=== PATIENT | female | born 1970 | race African-American/Black ===

== ENCOUNTER 2021-08-17 08:39 | Outpatient (REF) | payer OTHER, SELFPAY ==
--- NOTE | 2021-09-04 08:23 | MHC.AU.AEV ---
Adult Audiological Evaluation Date of Visit: 08/17/21 Reason for Appointment: Patient has begun to notice hearing difficulty. She reports that she was given a hearing screening recently, which indicated she should have a full audiological evaluation. She notices the most difficulty hearing in groups or in background noise. Does patient feel they have a hearing loss?: Yes If Yes, Which Ear?: Both Ears Hearing Handicap Inventory Does a hearing problem cause you to feel embarrassed when meeting new people?: No Does a hearing problem cause you to feel frustrated when talking to members of your family?: Yes Do you have difficulty when someone speaks in a whisper?: Yes Do you feel handicapped by a hearing problem?: No Does a hearing problem cause you difficulty when visiting friends, relatives, or neighbors?: No Does a hearing problem cause you to attend yarsanism service services less often than you would like?: No Does a hearing problem cause you to have arguments with family members?: Sometimes Does a hearing problem cause you difficulty when listening to TV or radio?: No Do you feel that any difficult with your hearing limits or hampers your personal or social life?: Sometimes Does a hearing problem cause you difficulty when in a restaurants with relatives or friends?: Yes HHIE SCORE: 16 Based on HHIE score, patient has: Mild to moderate perceived hearing handicap Ear History: Ear Deformity: None Reported Recent Ear Drainage: None Reported Recent Ear Pain: None Reported Family History of Hearing Loss?: Yes: Mother, Aunt Recent Ear Infections: None Reported Ear Infections in Childhood: None Reported History of Ear Wax Buildup: None Reported Previous Ear Surgery: None Reported Bothersome Tinnitus/Ringing/Noises in Ears: None Reported Ear used on the phone: Right Ear Blocked/Full Sensation in Ear(s): None Reported History of occupational noise exposure?: Yes History: No Medical History: Medical History: Diabetes, High Blood Pressure Medication List: Lisinopril, Pravstatin, Levemir, Januvia, Multivitamin Otoscopy: Right Ear: Occluded w/cerumen- removal performed prior to testing Left Ear: Occluded w/cerumen- removal performed prior to testing Tympanometry: Tympanometry performed due to: To assess integrity of the middle ear system Right Ear: Normal Middle Ear System (Type A) Left Ear: Hypercompliant Middle Ear System (Type Ad) Hearing Evaluation: Transducer(s) Used: Circumaural Headphones Method: Conventional Audiometry Stimuli Used: Pure Tones Right Ear: Description of Hearing: Normal hearing from 250-3000 Hz, sloping to moderately-severe sensorineural hearing loss at 8000 Hz Left Ear: Description of Hearing: Normal hearing from 250-3000 Hz, sloping to severe sensorineural hearing loss at 8000 Hz Speech Recognition Threshold (SRT): Method Used: Recorded Lists Stimuli Used: Spondee Words Right Ear: 15 dBHL Left Ear: 20 dBHL Word Discrimination: Method: Recorded Lists Word Lists Used:: W-22 Right Ear: 96% at 55 dBHL Left Ear: 96% at 55 dBHL QuickSIN: 4 dB SNR loss, which suggests mildly elevated difficulty understanding speech in noise Interpretation of Results: Otoscopy prior to testing had revealed occluded canals. Cerumen removal was performed, and the tympanic membranes can now be visualized. Some cerumen remains, as it was too deep to be removed today, but it was not enough to interfere with testing. It is likely that the occluding cerumen was affecting her hearing prior to its removal. Patient presents with hearing that is normal from 250-3000 Hz, sloping to moderately-severe/severe sensorineural hearing loss by 8000 Hz. With this degree of hearing loss, patient can likely still understand speech well in quiet settings and small groups. In larger groups or noisy settings, it may become more difficult to follow along in conversation. At this time, hearing aids are not warranted, as most of the hearing is falling within normal range. Recommendations: Audiological re-evaluation in one year. To optimize the listening environment: -Minimize background noise when possible -Speak in clear voice, from a close distance, and [id number] -Do not talk too fast. Most people find that slowing down the rate of speech is more helpful than raising one's voice or yelling. -Gain the patient's full attention before talking -Encourage groups to only have one person speaking at a time Use of wax softening drops, such as EarWaxMD or Debrox, is recommended. Diagnosis: Primary Diagnosis: H90.3 Bilateral Sensorineural Hearing Loss Signature: Provider: Rony Jeter, [facility]
== END 2021-08-17 08:40 | disposition home or self-care (01) ==
LOC: HO.SH 08:39
PROVIDERS: Visit Provider Internal Medicine
DX: Z01.118 Encounter for examination of ears and hearing with other abnormal findings (principal); H90.3 Sensorineural hearing loss, bilateral
CPT/HCPCS: 92557; 92567

== ENCOUNTER 2021-08-29 09:03 | Outpatient (REF) | payer OTHER, SELFPAY ==
--- NOTE | ~2021-08-29 | MM_ITS ---
EXAMINATION: MM SCREENING DIGITAL BREAST TOMOSYNTHESIS, BILATERAL CLINICAL INFORMATION: Screening. Asymptomatic. Prior [id number] mammography currently unavailable. Prior history benign left excisional biopsy 1998. The lifetime risk of breast cancer based on the Tyrer-Cuzick Model is 11%. COMPARISON: None. TECHNIQUE: Digital breast tomosynthesis is performed in both the craniocaudal and mediolateral oblique views along with computer-aided detection (CAD). Synthesized 2D images are generated from the tomosynthesis. FINDINGS: There are scattered areas of fibroglandular density (ACR BI-RADS breast composition Category b). Breast tissue composition borders on heterogeneously dense. There are no significant masses, abnormal calcifications, or other abnormalities. The axilla and skin contours are unremarkable. Radiology department staff will attempt to retrieve prior [id number] mammography to allow for comparison in an addendum report. MM/MM tomosynthesis screening BI IMPRESSION: No mammographic evidence of malignancy. ASSESSMENT: BI-RADS 1: Negative RECOMMENDATION: Routine annual mammography screening. This patient's information was entered into a reminder system with a target due date for their next mammogram.
== END 2021-08-29 09:04 | disposition home or self-care (01) ==
LOC: HO.MAMMO 09:03
PROVIDERS: PCP Internal Medicine; Visit Provider Internal Medicine
DX: Z12.31 Encounter for screening mammogram for malignant neoplasm of breast (principal)
CPT/HCPCS: 77063; 77067

== ENCOUNTER 2021-09-06 15:22 | Outpatient (REF) | payer OTHER, SELFPAY ==
--- NOTE | ~2021-09-06 | XR_ITS ---
EXAMINATION: XR CERVICAL SPINE CLINICAL INFORMATION: Neck pain. COMPARISON: None TECHNIQUE: 6 views of the cervical spine, inclusive of flexion and extension views, were obtained. FINDINGS: The vertebral alignment is normal. No intrinsic bony abnormality. The disc heights and neural foramina are well maintained. The endplates and posterior elements are normal. No fracture or subluxation. The surrounding prevertebral soft tissues are unremarkable. XR/XR cervical spine min 6V IMPRESSION: Unremarkable cervical spine.
== END 2021-09-06 15:23 | disposition home or self-care (01) ==
LOC: HO.XRAY 15:22
PROVIDERS: PCP Internal Medicine; Visit Provider Internal Medicine
DX: M54.2 Cervicalgia (principal)
CPT/HCPCS: 72052

== ENCOUNTER 2021-10-26 08:35 | Emergency (ER) | payer OTHER, SELFPAY ==
--- NOTE | ~2021-10-26 | XR_ITS ---
EXAMINATION: XR CHEST CLINICAL INFORMATION: Hypertension. Chest pain. COMPARISON: None TECHNIQUE: 2 views of the chest were obtained. FINDINGS: No significant abnormality is noted involving the heart, lungs, mediastinum, bony thorax or soft tissues. XR/XR chest 2V IMPRESSION: Unremarkable chest examination.
[2021-10-26 08:37] VITALS: BP 188/88; PULSE 66; RESP 16; TEMP 36.4; O2SAT 99; BMI 34.2
--- NOTE | 2021-10-26 08:56 | ECG_ITS ---
Test Reason : hypertension Blood Pressure : / mmHG Vent. Rate : 055 BPM Atrial Rate : 055 BPM P-R Int : 218 ms QRS Dur : 080 ms QT Int : 440 ms P-R-T Axes : 027 003 021 degrees QTc Int : 420 ms Sinus bradycardia with 1st degree A-V block Otherwise normal ECG No previous ECGs available Referred By: Sheeba Jorge Electronically Signed By:Tiburcio Sepulveda
--- NOTE | 2021-10-26 08:57 | ED.GENADULT ---
HPI - General Adult General Chief complaint: General Medical Stated complaint: high BP Time Seen by Provider: 10/26/21 08:43 Source: patient Mode of arrival: ambulatory Limitations: no limitations History of Present Illness HPI narrative: Patient presents emergency department for evaluation of elevated blood pressure readings, headache, and bilateral arm pain. She states that she was seen by her primary care provider 3 days ago and her blood pressure was normal. Since yesterday she developed a diffuse headache, and felt heaviness/ pressure to her bilateral arms. She suspected that her blood pressure may be elevated. When checked she states it was 190 systolic. Last night around 2300 she took an additional lisinopril 20 mg by mouth, took her scheduled lisinopril 20 mg at 06:00. States that her headache and arm pain still persists at this time. Reports history of her father having an PR at the age of 51. Currently she denies vision changes, dizziness, lightheadedness, neck pain, neck stiffness, chest pain, palpitations, shortness of breath, difficulty breathing, nausea, vomiting, abdominal pain, dysuria, numbness or tingling of the extremities, generalized weakness. Related Data Allergies Allergy/AdvReac Type Severity Reaction Status Date / Time No Known Allergies Allergy Verified 10/26/21 08:55 Review of Systems Review of Systems: Constitutional: No fever. No chills. No weakness. No fatigue. Eye: No vision changes Skin: No rash. No itching. Cardiovascular: No chest pain. No chest pressure. No palpitations. No pedal edema. positive hypertension Respiratory: No shortness of breath. No cough. Gastrointestinal: No anorexia. No nausea. No vomiting. No diarrhea. No abdominal pain. Genitourinary: No burning micturition. No urinary frequency. No incontinence. Neurologic: positive headache. No dizziness. No pre-syncope/ syncope. No unilateral weakness. No ataxia. No numbness. No tingling. Musculoskeletal: No muscle pain. No back pain. No joint pain. No stiffness. Psychiatric:No depression. No anxiety. Yes all other systems are reviewed and are negative [facility] Past Medical History Attestation statement: The following information was validated with the patient. Source: old records reviewed Social History Social History Advance Directives: No Advance Directives Information Provided: No Physical Exam ED Vital Signs: Vital Signs - 24 hr 10/26/21 08:37 10/26/21 09:23 10/26/21 11:07 Temperature 97.5 F Pulse Rate 66 53 56 Respiratory Rate 16 14 10 L Blood Pressure 188/88 H 145/75 H 153/82 H Pulse Oximetry 99 100 100 Oxygen Delivery Method Room Air Room Air Room Air BMI result Body Mass Index 34.2 Vital signs have been reviewed and appeared to be correct. hypertension, during exam 159/85? Heart rate normal.? Respiration rate normal. Temperature normal.? Oxygen saturation normal. Appearance: Alert.?Oriented to person, place and time. No acute distress.?Normal affect. Eyes: Pupils equal, round and reactive to light.? EOMI. No nystagmus. ENT: Pharynx normal.?? Neck: Normal inspection.? Neck supple.?? Full AROM. No stiffness. CVS: Heart sounds normal. Normal heart rate and rhythm.? Pulses normal.?? no JVD Respiratory: No respiratory distress.? Lung sounds clear to auscultation bilaterally?? Abdomen: Soft and non-tender. Normoactive bowel sounds. No pulsatile mass.?? Skin: Skin warm and dry.? Normal skin color.? Extremities: No lower extremity edema.? No calf ttp? Neuro: Moves all extremities spontaneously. Sensation intact bilaterally. No motor deficits Ambulates with normal steady gait. Course Course Course Narrative: patient is a 51-year-old female with a past medical history of diabetes and hypertension presenting to emergency department for evaluation of elevated blood pressure readings with headache and arm pain. Initial blood pressure 188/88, on repeat during exam 159/85, otherwise hemodynamically stable. Will obtain CBC to evaluate for leukocytosis/ anemia, CMP to evaluate for abnormal electrolytes /abnormal renal function/ abnormal hepatic function, EKG and troponin to evaluate for ischemia/ACS. Chest x-ray to evaluate for consolidation/ infiltrate/ mass/ pulmonary congestion. Disposition pending results. Reevaluation(s) Reevaluation #1: CBC reveals normocytic anemia, leukocytopenia. CMP is overall unremarkable. chest x-ray reveals no acute cardiopulmonary process. Troponin <3.5, EKG reveals sinus bradycardia with first-degree AV block, no EKGs for comparison, but no acute ischemic findings, unlikely ACS. Patient reports never having an EKG in the past, discussed EKG findings, advised that she should follow-up with her primary care provider within 1-3 days. discussed reasons that she should return back to the emergency department. Blood pressure at the time of discharge 145/75. She is otherwise well-appearing. She is discharged home in stable condition. Time: 10:31 Medical Decision Making Medical Records Medical records reviewed: Yes I reviewed the patient's medical records. Lab Data Lab results reviewed: Yes I reviewed the patient's lab results. Result diagrams: 10/26/21 09:15 10/26/21 09:15 Labs: Lab Results 10/26/21 10/26/21 10/26/21 Range/Units 09:15 09:15 09:15 WBC 4.0 L (4.8-10.8) X10*3/uL RBC 4.14 L (4.20-5.50) X10*6/uL Hgb 11.6 L (12.0-16.0) g/dl Hct 35.8 L (37.0-47.0) % MCV 86.5 (80.0-98.0) fL MCH 28.0 (27.0-33.0) pg MCHC 32.4 (31.0-35.0) g/dl RDW 12.9 (11.0-16.0) % Plt Count 350 (160-400) X10*3/uL MPV 8.8 L (9.4-12.3) fL Immature Gran % (Auto) 0.5 H (0.0-0.4) % Neut % (Auto) 42.7 L (45-73) % Lymph % (Auto) 46.9 H (20-40) % [place] % (Auto) 8.1 (2-11) % Eos % (Auto) 1.3 (0-4) % Baso % (Auto) 0.5 (0-2) % Lymph # (Auto) 1.9 (1.2-4.9) X10*3/uL [place] # (Auto) 0.3 (0.1-1.2) X10*3/uL Eos # (Auto) 0.1 (0.0-0.4) X10*3/uL Baso # (Auto) 0.0 (0.0-0.2) X10*3/uL Abs Immat Gran (auto) 0.02 (0.00-0.03) X10*3/uL Absolute Neuts (auto) 1.7 L (2.0-8.3) x10*3/uL Absolute Nucleated RBC 0.000 (0.0-0.012) X10*3/uL Nucleated RBC % (auto) 0.0 (0.0-0.2) /100WBC Sodium 141 (135-145) mmol/L Potassium 3.8 (3.3-5.1) mmol/L Chloride 107 (96-108) mmol/L Carbon Dioxide 29 (22-29) mmol/L Anion Gap 9 L (12-20) BUN 10 (9-16) mg/dL Creatinine 0.78 (0.5-1.4) mg/dL Estim Creat Clear Calc 99.7 Estimated GFR > 60 Random Glucose 118 H (60-115) mg/dL Calcium 9.1 (8.4-10.2) mg/dL Magnesium 2.0 (1.6-2.6) mg/dL Total Bilirubin 0.7 (0.0-1.0) mg/dL AST 19 (5-31) U/L ALT 26 (0-31) U/L Alkaline Phosphatase 93 (39-117) U/L Troponin I High Sens < 3.5 (<3.5-17.0) ng/L Total Protein 7.6 (6.5-8.0) g/dL Albumin 4.1 (3.5-5.0) g/dL COVID-19 ([place]) (Negative) COVID-19 Clin Com 10/26/21 Range/Units 09:15 WBC (4.8-10.8) X10*3/uL RBC (4.20-5.50) X10*6/uL Hgb (12.0-16.0) g/dl Hct (37.0-47.0) % MCV (80.0-98.0) fL MCH (27.0-33.0) pg MCHC (31.0-35.0) g/dl RDW (11.0-16.0) % Plt Count (160-400) X10*3/uL MPV (9.4-12.3) fL Immature Gran % (Auto) (0.0-0.4) % Neut % (Auto) (45-73) % Lymph % (Auto) (20-40) % [place] % (Auto) (2-11) % Eos % (Auto) (0-4) % Baso % (Auto) (0-2) % Lymph # (Auto) (1.2-4.9) X10*3/uL [place] # (Auto) (0.1-1.2) X10*3/uL Eos # (Auto) (0.0-0.4) X10*3/uL Baso # (Auto) (0.0-0.2) X10*3/uL Abs Immat Gran (auto) (0.00-0.03) X10*3/uL Absolute Neuts (auto) (2.0-8.3) x10*3/uL Absolute Nucleated RBC (0.0-0.012) X10*3/uL Nucleated RBC % (auto) (0.0-0.2) /100WBC Sodium (135-145) mmol/L Potassium (3.3-5.1) mmol/L Chloride (96-108) mmol/L Carbon Dioxide (22-29) mmol/L Anion Gap (12-20) BUN (9-16) mg/dL Creatinine (0.5-1.4) mg/dL Estim Creat Clear Calc Estimated GFR Random Glucose (60-115) mg/dL Calcium (8.4-10.2) mg/dL Magnesium (1.6-2.6) mg/dL Total Bilirubin (0.0-1.0) mg/dL AST (5-31) U/L ALT (0-31) U/L Alkaline Phosphatase (39-117) U/L Troponin I High Sens (<3.5-17.0) ng/L Total Protein (6.5-8.0) g/dL Albumin (3.5-5.0) g/dL COVID-19 ([place]) Negative (Negative) COVID-19 Clin Com See Note Imaging Data Chest x-ray: Radiologist's impression: FINDINGS: No significant abnormality is noted involving the heart, lungs, mediastinum, bony thorax or soft tissues. XR/XR chest 2V IMPRESSION: Unremarkable chest examination. ECG Data Attestation: I personally reviewed and interpreted this ECG as follows: Prior ECG tracings: not available for review Interpretation: Rate: 55 Rhythm:? sinus bradycardia with first-degree AV block [place]:? normal Normal P waves.? prolonged [place]AT[place]Z; 218.?? Normal QRS complex.?? ST T wave :?? no ST elevation, no ST depression, no T-wave inversion qTC: 420 prior studies:? no prior studies available for review The study has been interpreted contemporaneously by me. Discharge Plan Discharge Clinical Impression: Hypertension, Atrioventricular block, first degree, Bradycardia, sinus Patient Disposition: Home, Self-Care Instructions: Hypertension (ED) Additional Instructions: Your blood work shows that you are anemic, but do not require any blood transfusion. Your EKG shows an arrhythmia, sinus bradycardia with first-degree AV block, you reported not having an EKG performed in the past, you need to contact your primary care provider to schedule a follow-up visit in regards to this. Blood pressure had normalized while in the emergency department, please contact your primary care provider to schedule follow-up visit within 1-3 days for further evaluation of your blood pressure. You may return to emergency department with any new or worsening symptoms or concerns such as severe worsening headache, neck pain, chest pain, palpitations, shortness of breath, difficulty breathing, dizziness, lightheadedness, nausea, vomiting, abdominal pain, numbness or tingling of your arms/ legs, or weakness. Interventions: ED Discharge Assessment Last Done: 10/26/21 11:28 Discharge Date/Time: 10/26/21 11:29
[2021-10-26 09:23] VITALS: BP 145/75; PULSE 53; RESP 14; O2SAT 100
[2021-10-26 09:25] LABS: MANUAL DIFF FLAG NO
[2021-10-26 09:35] LABS: Basophils Percent Auto 0.5 % (0-2); Eosinophils Absolute Auto 0.1 X10*3/uL (0.0-0.4); Eosinophils Percent Auto 1.3 % (0-4); Hematocrit 35.8 % (37.0-47.0); Hemoglobin 11.6 g/dl (12.0-16.0); Imm Gran Abs Auto 0.02 X10*3/uL (0.00-0.03); Imm Gran Pct Auto 0.5 % (0.0-0.4); Lymphocytes Absolute Auto 1.9 X10*3/uL (1.2-4.9); Lymphocytes Percent Auto 46.9 % (20-40); Mean Corpuscular HGB Conc 32.4 g/dl (31.0-35.0); Mean Corpuscular Volume 86.5 fL (80.0-98.0); Mean Platelet Volume 8.8 fL (9.4-12.3); Monocytes Absolute Auto 0.3 X10*3/uL (0.1-1.2); Monocytes Percent Auto 8.1 % (2-11); Neutrophils Absolute Auto 1.7 x10*3/uL (2.0-8.3); Neutrophils Percent Auto 42.7 % (45-73); Platelet Count 350 X10*3/uL (160-400); Red Blood Count 4.14 X10*6/uL (4.20-5.50); Red Cell Distribution Width 12.9 % (11.0-16.0)
[2021-10-26 09:42] LABS: COVID-19 Test Negative (Negative)
[2021-10-26 09:49] LABS: Alanine Aminotransferase 26 U/L (0-31); Albumin Level 4.1 g/dL (3.5-5.0); Alkaline Phosphatase 93 U/L (39-117); Anion Gap 9 (12-20); Aspartate Amino Transferase 19 U/L (5-31); Bilirubin Total 0.7 mg/dL (0.0-1.0); Blood Urea Nitrogen 10 mg/dL (9-16); Calcium 9.1 mg/dL (8.4-10.2); Carbon Dioxide 29 mmol/L (22-29); Chloride 107 mmol/L (96-108); Creatinine Clr Calc Pharmacy 99.7; Estimated Glomerular Filt Rate > 60; Glucose Random 118 mg/dL (60-115); Potassium 3.8 mmol/L (3.3-5.1); Sodium 141 mmol/L (135-145); Total Protein 7.6 g/dL (6.5-8.0); Troponin-I High Sensitivity < 3.5 ng/L (<3.5-17.0)
[2021-10-26 11:07] VITALS: BP 153/82; PULSE 56; RESP 10; O2SAT 100
== END 2021-10-26 11:29 | disposition home or self-care (01) ==
PROVIDERS: Nurse Practitioner Family; Emergency Provider Student in an Organized Health Care Education/Training Program; PCP Internal Medicine
DX: I10 Essential (primary) hypertension (principal); I44.0 Atrioventricular block, first degree; R00.1 Bradycardia, unspecified; D64.9 Anemia, unspecified; D72.819 Decreased white blood cell count, unspecified; Z20.822 Contact with and (suspected) exposure to COVID-19
CPT/HCPCS: 71046; 80053; 83735; 84484; 85025; 87635; 93005; 99283; 99284

== ENCOUNTER 2022-01-14 12:24 | Emergency (ER) | payer OTHER, SELFPAY ==
--- NOTE | ~2022-01-14 | XR_ITS ---
EXAMINATION: XR CHEST CLINICAL INFORMATION: Shortness of breath, chest pain. COMPARISON: 10/26/2021 chest radiographs. TECHNIQUE: Frontal view of the chest was obtained. FINDINGS: No significant abnormality is noted involving the heart, lungs, mediastinum, bony thorax or soft tissues. XR/XR chest 1V IMPRESSION: No acute cardiopulmonary process.
[2022-01-14 12:42] VITALS: BP 125/74; BP 139/75; PULSE 130; PULSE 98; RESP 18; TEMP 37.9; O2SAT 95; BMI 31.7
--- NOTE | 2022-01-14 12:55 | ECG_ITS ---
Test Reason : SOB Blood Pressure : / mmHG Vent. Rate : 093 BPM Atrial Rate : 093 BPM P-R Int : 198 ms QRS Dur : 084 ms QT Int : 356 ms P-R-T Axes : 044 002 067 degrees QTc Int : 442 ms Normal sinus rhythm Nonspecific T wave abnormality Abnormal ECG When compared with ECG of 26-OCT-2021 09:03, Vent. rate has increased BY 38 BPM Nonspecific T wave abnormality, worse in Lateral leads Referred By: Aleksandra Bhatt Electronically Signed By:JOHN OSMAN
--- NOTE | 2022-01-14 13:02 | ED.GENADULT ---
HPI - General Adult General Chief complaint: General Medical Stated complaint: NAUSEA/VOMITING Time Seen by Provider: 01/14/22 12:36 Source: patient and EMS Mode of arrival: EMS History of Present Illness HPI narrative: 52-year-old female with no significant past medical history presenting to the ED complaining of productive cough, SOB, chest discomfort when coughing, nausea, and vomiting since yesterday. Reports COVID-19 exposure. Also reports low-grade fever, chills, myalgias and generalized fatigue. Denies headache, abdominal pain, diarrhea/constipation, dysuria/hematuria, recent travel Onset (ago): day(s) Related Data Allergies Allergy/AdvReac Type Severity Reaction Status Date / Time No Known Allergies Allergy Verified 10/26/21 08:55 Review of Systems Review of Systems: Constitutional: + Fever, + Chills, No Night Sweats, + Fatigue, + Malaise ENT/Mouth: No Ear Pain, No Nasal Congestion, No Sinus Pain, No Hoarseness, No sore throat, No Rhinorrhea, No Swallowing Difficulty Eyes: No Eye Pain, No Swelling, No Redness, No Vision Changes Cardiovascular: + Chest Pain when coughing, + SOB, No Dyspnea on Exertion, No Orthopnea, No Edema, No Palpitations Respiratory: + Cough, + Sputum, No Dyspnea Gastrointestinal: + Nausea, + Vomiting, No Diarrhea, No Constipation, No Abdominal pain Genitourinary: No Dysuria, No Urinary Frequency, No Hematuria, No Urinary Incontinence/retention, No Flank Pain, No Urinary Flow Changes, No Hesitancy Musculoskeletal: No joint pain, + Myalgias, No Joint Swelling Skin: No Skin Lesions, No rash Neuro: No Weakness, No Numbness, No Paresthesias, No Loss of Consciousness, No Dizziness, No Headache Yes all other systems are reviewed and are negative Constitutional: Constitutional: Reports as per [facility] Past Medical History Attestation statement: The following information was validated with the patient. Social History Social History Advance Directives: No Advance Directives Information Provided: Yes Physical Exam ED Vital Signs: Vital Signs - 24 hr 01/14/22 12:42 Temperature 100.3 F Pulse Rate 98 Respiratory Rate 18 Blood Pressure 139/75 Pulse Oximetry 95 Oxygen Delivery Method Room Air BMI result Body Mass Index 31.7 Const General: cooperative, healthy appearing, no acute distress and alert Orientation/consciousness: patient oriented x3 Limitations: no limitations HENMT Head: Yes normal to inspection and Yes atraumatic Ears: hearing grossly normal bilaterally General nose exam: Normal external nose present Face and sinus: Yes normal facial exam Mouth: Normal oral and palatal mucosa present Throat: Yes posterior oropharynx normal and Yes tonsils normal Eyes General: appearance normal, both eyes and all related structures EOM: EOMs intact bilaterally Neck Neck: Yes normal visual inspection and Yes no meningeal signs Resp Effort & Inspection: normal respiratory effort and no respiratory distress Auscultation: clear to auscultation bilaterally, no crackles, no rales, no rhonchi and no wheezes Cardio Rate: regular rate Heart sounds: S1 normal heart sound present and S2 normal heart sound present GI Inspection: Yes normal to inspection Palpation (GI): Soft to palpation, nontender, no guarding and not rigid General: Yes no CVA tenderness Back/Spine/Pelvis Back: no CVA tenderness Skin Rashes: no rashes Wounds: no wounds Neuro General: patient oriented x3, tone normal and no meningeal signs Gait exam (Neuro): Normal gait present Extrem General: Yes normal to inspection, Yes no pedal edema and Yes no calf tenderness Course Course Course Narrative: -no leukocytosis. H&H stable. Patient is COVID-19 positive -labs otherwise unremarkable XR chest 1V IMPRESSION: No acute cardiopulmonary process. > patient is tolerating p.o. in the ED. Will refer to [facility] monoclonal antibodies Results discussed with patient including worrisome signs and symptoms and strict return precautions, and when to return to the emergency department. They verbalized understanding and feel safe for discharge at this time. Medical Decision Making [facility] Narrative Medical decision making narrative: 52-year-old female with no significant past medical history presenting to the ED complaining of productive cough, SOB, chest discomfort when coughing, nausea, and vomiting since yesterday. On exam low-grade temp 100.3 degrees, appears tired, lungs CTA, abdomen soft/nontender. Concern for viral illness including COVID-19 vs pneumonia vs gastroenteritis. Lower suspicion for ACS/PE, appendicitis/diverticulitis or or severe sepsis at this time Plan: EKG, labs, UA, IVF, COVID-19 testing, re-evaluate Medical Records Medical records reviewed: Yes I reviewed the patient's medical records. Lab Data Lab results reviewed: Yes I reviewed the patient's lab results. Result diagrams: 01/14/22 13:19 01/14/22 13:19 Labs: Lab Results 01/14/22 01/14/22 01/14/22 Range/Units 13:19 13:19 13:19 WBC 6.0 (4.8-10.8) X10*3/uL RBC 4.04 L (4.20-5.50) X10*6/uL Hgb 11.5 L (12.0-16.0) g/dl Hct 34.7 L (37.0-47.0) % MCV 85.9 (80.0-98.0) fL MCH 28.5 (27.0-33.0) pg MCHC 33.1 (31.0-35.0) g/dl RDW 13.2 (11.0-16.0) % Plt Count 314 (160-400) X10*3/uL MPV 8.8 L (9.4-12.3) fL Immature Gran % (Auto) 0.3 (0.0-0.4) % Neut % (Auto) 82.0 H (45-73) % Lymph % (Auto) 7.0 L (20-40) % [place] % (Auto) 10.3 (2-11) % Eos % (Auto) 0.2 (0-4) % Baso % (Auto) 0.2 (0-2) % Lymph # (Auto) 0.4 L (1.2-4.9) X10*3/uL [place] # (Auto) 0.6 (0.1-1.2) X10*3/uL Eos # (Auto) 0.0 (0.0-0.4) X10*3/uL Baso # (Auto) 0.0 (0.0-0.2) X10*3/uL Abs Immat Gran (auto) 0.02 (0.00-0.03) X10*3/uL Absolute Neuts (auto) 4.9 (2.0-8.3) x10*3/uL Absolute Nucleated RBC 0.000 (0.0-0.012) X10*3/uL Nucleated RBC % (auto) 0.0 (0.0-0.2) /100WBC Sodium 140 (135-145) mmol/L Potassium 3.3 (3.3-5.1) mmol/L Chloride 102 (96-108) mmol/L Carbon Dioxide 27 (22-29) mmol/L Anion Gap 14 (12-20) BUN 13 (9-16) mg/dL Creatinine 1.23 (0.5-1.4) mg/dL Estim Creat Clear Calc 60.2 Estimated GFR 46 Random Glucose 185 H (60-115) mg/dL Calcium 8.7 (8.4-10.2) mg/dL Magnesium 1.7 (1.6-2.6) mg/dL Total Bilirubin 0.6 (0.0-1.0) mg/dL Direct Bilirubin 0.2 (0.0-0.5) mg/dL AST 24 (5-31) U/L ALT 26 (0-31) U/L Alkaline Phosphatase 75 (39-117) U/L Troponin I High Sens < 3.5 (<3.5-17.0) ng/L B-Natriuretic Peptide < 10 (<100) pg/mL Total Protein 7.3 (6.5-8.0) g/dL Albumin 3.9 (3.5-5.0) g/dL COVID-19 ([place]) (Negative) COVID-19 Clin Com 01/14/22 Range/Units 13:19 WBC (4.8-10.8) X10*3/uL RBC (4.20-5.50) X10*6/uL Hgb (12.0-16.0) g/dl Hct (37.0-47.0) % MCV (80.0-98.0) fL MCH (27.0-33.0) pg MCHC (31.0-35.0) g/dl RDW (11.0-16.0) % Plt Count (160-400) X10*3/uL MPV (9.4-12.3) fL Immature Gran % (Auto) (0.0-0.4) % Neut % (Auto) (45-73) % Lymph % (Auto) (20-40) % [place] % (Auto) (2-11) % Eos % (Auto) (0-4) % Baso % (Auto) (0-2) % Lymph # (Auto) (1.2-4.9) X10*3/uL [place] # (Auto) (0.1-1.2) X10*3/uL Eos # (Auto) (0.0-0.4) X10*3/uL Baso # (Auto) (0.0-0.2) X10*3/uL Abs Immat Gran (auto) (0.00-0.03) X10*3/uL Absolute Neuts (auto) (2.0-8.3) x10*3/uL Absolute Nucleated RBC (0.0-0.012) X10*3/uL Nucleated RBC % (auto) (0.0-0.2) /100WBC Sodium (135-145) mmol/L Potassium (3.3-5.1) mmol/L Chloride (96-108) mmol/L Carbon Dioxide (22-29) mmol/L Anion Gap (12-20) BUN (9-16) mg/dL Creatinine (0.5-1.4) mg/dL Estim Creat Clear Calc Estimated GFR Random Glucose (60-115) mg/dL Calcium (8.4-10.2) mg/dL Magnesium (1.6-2.6) mg/dL Total Bilirubin (0.0-1.0) mg/dL Direct Bilirubin (0.0-0.5) mg/dL AST (5-31) U/L ALT (0-31) U/L Alkaline Phosphatase (39-117) U/L Troponin I High Sens (<3.5-17.0) ng/L B-Natriuretic Peptide (<100) pg/mL Total Protein (6.5-8.0) g/dL Albumin (3.5-5.0) g/dL COVID-19 ([place]) Positive A (Negative) COVID-19 Clin Com See Note ECG Data Attestation: I personally reviewed and interpreted this ECG as follows: Interpretation: EKG normal sinus rhythm at a rate of 93. QTC 442. No STEMI. Nonischemic Discharge Plan Discharge Clinical Impression: COVID-19 Patient Disposition: Home, Self-Care Instructions: COVID-19 (Coronavirus Disease 2019) (ED) Additional Instructions: YOU HAVE COVID-19. WE REFERRED YOU FOR [facility] MONOCLONAL ANTIBODIES, THEY SHOULD CALL YOU TO SCHEDULE YOU. Rest. Stay hydrated. Self isolate. Take Tylenol and Motrin as needed. If symptoms persist or worsen, you fever unresolved with medications, constant worsening shortness of breath/chest pain return to the ED At this time you will be okay for discharge. Please self isolate for 5-10 days. Do not expose yourself to others. You may not go to work or school. Please continue to follow cold instructions and wash your hands frequently. You may take Tylenol / Motrin as directed on the bottle for pain or fever. If you have constant or persistent shortness of breath, fever unresolved with medications, chest pain, or your unable to eat or drink please return to the ED CDC Guidelines for home isolation: - Stay away from others - WEAR A MASK if you are sick AND STAY HOME - Cover your mouth and nose with a tissue when you cough or sneeze. Dispose of tissues in a lined trash can and wash your hands immediately with soap and water for at least 20 seconds. If soap and water are not available, clean hands with alcohol-based hand soft drink powder mixer that contains at least 60% alcohol. - Clean your hands often with soap and water for at least 20 seconds - Avoid touching your eyes, nose and mouth with unwashed hands - Do not share dishes, drinking glasses, cups, eating utensils, towels, or bedding with other people in your home. After using these items, wash them thoroughly with soap and water or put in the working foreman. - Clean high-touch surfaces in your isolation area ( sick room and bathroom) every day; let a caregiver clean and disinfect high-touch surfaces in other areas of the home. Clean the area or item with soap and water or another detergent if it is dirty. Then, use a household disinfectant. - Limit contact with pets and animals: If you must care for a pet, wash your hands before and after interacting with them) Referrals: April Delong MD [Primary Care Provider] - Stand Alone Forms: Work/School Release
[2022-01-14] MEDS: 0.9 % Sodium Chloride 1,000 ML 999 ML IV (13:03)
[2022-01-14 13:22] LABS: MANUAL DIFF FLAG NO
[2022-01-14 13:26] LABS: Basophils Percent Auto 0.2 % (0-2); Eosinophils Percent Auto 0.2 % (0-4); Hematocrit 34.7 % (37.0-47.0); Hemoglobin 11.5 g/dl (12.0-16.0); Imm Gran Abs Auto 0.02 X10*3/uL (0.00-0.03); Imm Gran Pct Auto 0.3 % (0.0-0.4); Lymphocytes Absolute Auto 0.4 X10*3/uL (1.2-4.9); Mean Corpuscular HGB Conc 33.1 g/dl (31.0-35.0); Mean Corpuscular Hemoglobin 28.5 pg (27.0-33.0); Mean Corpuscular Volume 85.9 fL (80.0-98.0); Mean Platelet Volume 8.8 fL (9.4-12.3); Monocytes Absolute Auto 0.6 X10*3/uL (0.1-1.2); Monocytes Percent Auto 10.3 % (2-11); Neutrophils Absolute Auto 4.9 x10*3/uL (2.0-8.3); Platelet Count 314 X10*3/uL (160-400); Red Blood Count 4.04 X10*6/uL (4.20-5.50); Red Cell Distribution Width 13.2 % (11.0-16.0)
[2022-01-14 13:32] LABS: COVID-19 Test Positive (Negative)
[2022-01-14 13:46] LABS: Alanine Aminotransferase 26 U/L (0-31); Albumin Level 3.9 g/dL (3.5-5.0); Alkaline Phosphatase 75 U/L (39-117); Anion Gap 14 (12-20); Aspartate Amino Transferase 24 U/L (5-31); Bilirubin Direct 0.2 mg/dL (0.0-0.5); Bilirubin Total 0.6 mg/dL (0.0-1.0); Blood Urea Nitrogen 13 mg/dL (9-16); Calcium 8.7 mg/dL (8.4-10.2); Carbon Dioxide 27 mmol/L (22-29); Chloride 102 mmol/L (96-108); Creatinine Clr Calc Pharmacy 60.2; Estimated Glomerular Filt Rate 46; Glucose Random 185 mg/dL (60-115); Magnesium 1.7 mg/dL (1.6-2.6); Potassium 3.3 mmol/L (3.3-5.1); Sodium 140 mmol/L (135-145); Total Protein 7.3 g/dL (6.5-8.0)
[2022-01-14 13:53] LABS: B Type Natriuretic Peptide < 10 pg/mL (<100); Troponin-I High Sensitivity < 3.5 ng/L (<3.5-17.0)
== END 2022-01-14 15:12 | disposition home or self-care (01) ==
PROVIDERS: Physician Assistant; Emergency Provider Emergency Medicine; PCP Internal Medicine
DX: U07.1 COVID-19 (principal); R11.2 Nausea with vomiting, unspecified; R05.9 Cough, unspecified; R50.9 Fever, unspecified; R06.02 Shortness of breath; Z79.899 Other long term (current) drug therapy
CPT/HCPCS: 71045; 80048; 80076; 83735; 83880; 84484; 85025; 87635; 93005; 99283

== ENCOUNTER 2022-09-04 09:00 | Outpatient (REF) | payer BC, SELFPAY ==
--- NOTE | ~2022-09-04 | MM_ITS ---
EXAMINATION: MM SCREENING DIGITAL BREAST TOMOSYNTHESIS, BILATERAL CLINICAL INFORMATION: Screening. Asymptomatic. The lifetime risk of breast cancer based on the Tyrer-Cuzick Model is 9.3%. COMPARISON: Mammography: 08/29/2021. TECHNIQUE: Digital breast tomosynthesis is performed in both the craniocaudal and mediolateral oblique views along with computer-aided detection (CAD). Synthesized 2-D images are generated from the tomosynthesis. FINDINGS: The breasts are heterogeneously dense, which may obscure small masses (ACR BI-RADS breast composition Category c). On craniocaudal view centrally within the right breast, there is an asymmetric density for which spot compression view is recommended. This likely represented superimposition of fibroglandular tissue but was not seen previously. On left craniocaudal view posterolaterally, there is an asymmetric density not visualized previously which may represent superposition of fibroglandular tissue which lies approximately 10 cm from the nipple for which spot compression view is recommended. MM/MM tomosynthesis screening BI IMPRESSION: Bilateral breast densities for further evaluation. ASSESSMENT: BI-RADS 0: Incomplete - Need Additional Imaging Evaluation. RECOMMENDATION: 1. Additional views of the bilateral breasts. 2. Targeted ultrasound if warranted after review of the additional views. 3. Radiology department staff will contact the patient for additional imaging. This patient's information was entered into a reminder system with a target due date for their next mammogram.
== END 2022-09-04 09:01 | disposition home or self-care (01) ==
LOC: HO.MAMMO 09:00
PROVIDERS: PCP Internal Medicine; Visit Provider Internal Medicine
DX: Z12.31 Encounter for screening mammogram for malignant neoplasm of breast (principal)
CPT/HCPCS: 77063; 77067

== ENCOUNTER 2022-09-11 08:20 | Outpatient (REF) | payer BC, SELFPAY ==
--- NOTE | ~2022-09-11 | MM_ITS ---
EXAMINATION: MM DIAGNOSTIC DIGITAL BREAST TOMOSYNTHESIS, BILATERAL CLINICAL INFORMATION: Recall from screening for bilateral asymmetric parenchyma central right and outer left breast on CC views. Remote history benign left excisional biopsy, 1998. TC score 11%. COMPARISON: Mammography: 09/04/2022, 08/29/2021 (new baseline). TECHNIQUE: Digital breast tomosynthesis is performed. 2D images are generated from the tomosynthesis. The following views are obtained: Spot right CC, right ML, spot left CC, rolled left CC x2, left ML. FINDINGS: There are scattered areas of fibroglandular density (ACR BI-RADS breast composition Category b). Breast tissue borders on heterogeneously dense. The additional views show no interval mass or developing density or architectural abnormality in the areas for recall. No significant changes from prior new baseline exam. Results are discussed with the patient at time of visit. MM/MM tomosynthesis added view BI IMPRESSION: No mammographic evidence of malignancy. ASSESSMENT: BI-RADS 1: Negative RECOMMENDATION: Routine annual mammography screening. This patient's information was entered into a reminder system with a target due date for their next mammogram.
== END 2022-09-11 08:21 | disposition home or self-care (01) ==
LOC: HO.MAMMO 08:20
PROVIDERS: PCP Internal Medicine; Visit Provider Internal Medicine
DX: R92.2 Inconclusive mammogram (principal)
CPT/HCPCS: 77062; 77066

== ENCOUNTER 2023-05-24 11:58 | Outpatient (REF) | payer BC, SELFPAY ==
[2023-05-28 21:18] LABS: Rubella IgG Antibody <0.90 Index
== END 2023-05-24 11:59 | disposition home or self-care (01) ==
LOC: HO.HHCL 11:58
PROVIDERS: Visit Provider Internal Medicine
DX: Z02.1 Encounter for pre-employment examination (principal)
CPT/HCPCS: 36415; 86735; 86762; 86765; 86787

== ENCOUNTER 2023-10-03 14:01 | Outpatient (AMB) | payer BC, SELFPAY ==
--- NOTE | 2023-10-03 14:14 | A.OFFPC_ITS ---
Vital Signs 10/03/23 14:31 BMI Reason not done Patient refused/unable BP 132/70 Blood Pressure Location Lt radial Respiration 14 Pulse 73 Pulse Source Pulse Oximeter Temp 98.1 F Temp Source Oral Pulse Oximetry (%) 97 Oxygen Delivery Method Room Air Intake Visit Reasons: Est Care/ Refill Insulin Intake Note: New patient visit. Needs refill on insulin. Forming Process Line Worker Required: No Allergies No Known Allergies Allergy (Verified 10/03/23 14:19) Medication List - Last Reconciled 10/03/23 by Abigail Larson PA-C hydrochlorothiazide 12.5 mg PO DAILY insulin detemir U-100 (Levemir FlexTouch U-100 Insulin) 50 units subcut DAILY lisinopril 10 mg PO DAILY pravastatin 40 mg PO DAILY semaglutide (Ozempic) 0.25 mg subcut QWEEK Tobacco use date assessed: 10/03/23 Dental Screening Dental Screen Date: 10/03/23 Did you have a dental visit in the last 12 months?: No Did you have a dental problem in the last 6 months where you did not have access to dental care?: No Was dental information given to patient?: Yes HPI Est Care/ Refill Insulin HPI Details Patient is a 53-year-old female who presents today for an urgent visit related to her diabetes. She has an appointment to establish care with her PCP in the fall but is currently out of her diabetic medication. She states that she has been out of her Levemir for the last week and her Ozempic is down to 1 pen. She states that she split the dosage on Saturday and took a half a dose so she would have another week of medication. Endo: Her blood sugar currently on her Dexcom reader is just shy of 400. She was diagnosed with type 2 diabetes in 2011. She has been insulin dependent since that time. A1c is 8.8 today. She states that it increased from 7. something. She is on levemir 50 units nightly and ozempic 0.5 mg. She was on metformin for years but d/c this because she switched to ozempic. She is using a dexcom. She states that she has enough Dexcom sensors at home. She is up-to-date on eye exams and states that she last went a couple of months ago. She does have gastroparesis related to her diabetes. She developed this a few years ago. She denies any other known complications associated with diabetes. She currently denies any vision changes, numbness, tingling, abdominal pain, nausea, vomiting or confusion. No headache. CV: bp today is 132/70. She is on hydrochlorothiazide and lisinopril. She is out of her pravastatin. No chest pain or shortness a breath. [facility] Medical History (Updated 10/03/23 @ 15:22 by Abigail Larson PA-C) Dyslipidemia Type 2 diabetes mellitus with complication, with long-term current use of insulin Poorly controlled type 2 diabetes mellitus with gastroparesis Gastroparesis Surgical History (Updated 10/03/23 @ 14:57 by Nallely Conrad CMA) History of cholecystectomy H/O lumpectomy Previous section Family History (Updated 10/03/23 @ 14:59 by Nallely Conrad CMA) Mother Asthma HTN (hypertension) Diabetes Cardiovascular disease Father Alcoholism Maternal Grandmother Cancer Paternal Grandmother Cancer Social History (Updated 10/03/23 @ 14:27 by Nallely Conrad CMA) Housing: House Patient Tobacco Use Status: Never used Tobacco e-Cigarette/Vaping Use: Never Used service: Yes Current occupational status: employed Current occupation: [employer] Current occupational exposures/hazards: No Cognitive needs: No Hearing needs: No Vision needs: No Questionnaire PHQ-9 Over the last 2 weeks, how often have you been bothered by any of the following problems? 1. Little interest or pleasure in doing things: not at all 2. Feeling down, depressed, or hopeless: not at all 3. Trouble falling or staying asleep, or sleeping too much: not at all 4. Feeling tired or having little energy: not at all 5. Poor appetite or overeating: several days 6. Feeling bad about yourself - or that you are a failure or have let yourself or your family down: several days 7. Trouble concentrating on things, such as reading the newspaper or watching television: several days 8. Moving or speaking so slowly that other people could have noticed. Or the opposite - being so fidgety or restless that you have been moving around a lot more than usual: not at all 9. Thoughts that you would be better off or of hurting yourself in some way: not at all Total score: 3 Depression Screening Interpretation: Negative Depression Screening Done: Yes 03661 - PHQ-9 Billing: Yes Source: Developed by Drs. Hever Solorzano, Nelly Feliz, Neto Darling and colleagues, with an educational alden from [employer]. Thrive Questionnaire Date Thrive assessed: 10/03/23 I am a: Patient What is your living situation today?: I have a steady place to live Within the past 12 months, did the food you bought not last and you didn't have the money to get more?: Never true Within the past 12 months, did you worry whether your food would run out before you got money to buy more?: Never true Do you have trouble paying for medicines?: No Do you have trouble getting transportation to medical appointments?: No Do you have trouble paying your heating and electricity bill?: No Do you have trouble taking care of your child, family member or friend?: No Do you have trouble with day-to-day activities such as bathing, preparing meals, shopping, managing finances, etc.?: No Are you currently unemployed and looking for a job?: No Are you interested in more education?: No Please select the resources that you would like help with: None Currently or been in a relationship where the following occur: no concerns reported THRIVE Score: 0 AUDIT C Alcohol Use Questionnaire (AUDIT-C) 1. How often do you have a drink containing alcohol?: Monthly or less 2. How many drinks containing alcohol do you have on a typical day when you are drinking?: 3 or 4 3. How often do you have six or more drinks on one occasion?: Less than monthly Total Score: 3 RANJEET-7 AMB Questionnaire RANJEET-7 Date RANJEET - 7 assessed: 10/03/23 Feeling nervous, anxious, or on edge: 0 = Not at all Not being able to stop or control worryin = Not at all Worrying too much about different things: 0 = Not at all Trouble relaxin = Several days Being so restless that it is hard to sit still: 0 = Not at all Becoming easily annoyed or irritable: 2 = More than half the days Feeling afraid as if something awful might happen: 3 = Nearly every day Total RANJEET-7 score (0-4 normal; 5-9 mild; 10-14 moderate; 15-21 severe): 6 Source: Developed by Drs. Hever Solorzano, Nelly Feliz, Neto Darling and colleagues, with an educational alden from [employer]. RANJEET-7 Assessment Billing RANJEET-7 Assessment Tool: RANJEET-7 Assessment 63439 Physical exam (Primary Care) Vital Signs: Last Vital Signs Temp 98.1 F 10/03/23 14:31 Pulse 73 10/03/23 14:31 Resp 14 10/03/23 14:31 BP 132/70 10/03/23 14:31 Pulse Ox 97 10/03/23 14:31 Oxygen Delivery Method Room Air 10/03/23 14:31 Tobacco/Smoking Status: Tobacco use Status Tobacco use date assessed 10/03/23 10/03/23 14:28 Patient Tobacco Use Status Never used Tobacco 10/03/23 14:28 e-Cigarette/Vaping Use Never Used 10/03/23 14:28 Depression Screening Interpretation: Negative Currently or been in a relationship where the following occur: no concerns reported Const Orientation/consciousness: patient oriented x3 HENMT Ears: hearing grossly normal bilaterally Neck Thyroid: Thyroid normal Lymphatic: no lymphadenopathy noted Resp Auscultation: clear to auscultation bilaterally Cardio Rate: regular rate Rhythm: regular rhythm Heart sounds: S1 normal heart sound present and S2 normal heart sound present GI Inspection: Yes normal to inspection Palpation (GI): Soft to palpation and Other GI palpation findings present (nontender, no cva tenderness) Auscultation: normoactive bowel sounds Rectal Exam - Female: deferred Skin General skin exam: no rashes or lesions noted Neuro General: patient oriented x3, gait normal and no focal motor deficits Results AMB Hemoglobin A1c AMB Hemoglobin A1c 8.8 % Last Edit by Nallely Conrad CMA on 10/03/23 14:36 Results Reviewed Results Reviewed: Laboratory Last Values Hgb A1c (Clinic) 8.8 % (4.0-6.0) H 10/03/23 14:35 Assessment and Plan Assessment & Plan (1) Hypertension: Code(s): I10 - Essential (primary) hypertension Qualifiers: Hypertension type: primary hypertension Qualified Code(s): I10 - Essential (primary) hypertension Plan: Continue current regimen (2) Poorly controlled type 2 diabetes mellitus with gastroparesis: Code(s): E11.43 - Type 2 diabetes mellitus with diabetic autonomic (poly)neuropathy; E11.65 - Type 2 diabetes mellitus with hyperglycemia Plan: Refilled Levemir and Ozempic. Advised to start taking her insulin tonight. Warning signs of hyper and hypoglycemia that would require emergent medical treatment were discussed at length today. She denies any known hypoglycemic events while on this combination of medication. Advised short term follow up with her reader. She will follow up in 2 weeks and complete labs prior to next appointment. (3) Type 2 diabetes mellitus with complication, with long-term current use of insulin: Code(s): E11.8 - Type 2 diabetes mellitus with unspecified complications; Z79.4 - custodial (current) use of insulin Plan: As above. Plan Patient understands and agrees with this plan. Orders: Orders AMB Hemoglobin A1c Today E11.9 - Type 2 diabetes mellitus without complications Comprehensive [place]. Panel Fast Today E11.43 - Type 2 diabetes mellitus with diabetic autonomic (poly)neuropathy, E11.65 - Type 2 diabetes mellitus with hyperglycemia, E11.8 - Type 2 diabetes mellitus with unspecified complications, E78.5 - Hyperlipidemia, unspecified, I10 - Essential (primary) hypertension, Z79.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 Lipid Panel Today E11.43 - Type 2 diabetes mellitus with diabetic autonomic (poly)neuropathy, E11.65 - Type 2 diabetes mellitus with hyperglycemia, E11.8 - Type 2 diabetes mellitus with unspecified complications, E78.5 - Hyperlipidemia, unspecified, I10 - Essential (primary) hypertension, Z79.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 Microalbumin, Random (w Creat) Today E11.43 - Type 2 diabetes mellitus with diabetic autonomic (poly)neuropathy, E11.65 - Type 2 diabetes mellitus with hyperglycemia, E11.8 - Type 2 diabetes mellitus with unspecified complications, E78.5 - Hyperlipidemia, unspecified, I10 - Essential (primary) hypertension, Z79.4 - custodial (current) use of insulin Complete Blood Count Auto Diff Today E11.43 - Type 2 diabetes mellitus with diabetic autonomic (poly)neuropathy, E11.65 - Type 2 diabetes mellitus with hyperglycemia, E11.8 - Type 2 diabetes mellitus with unspecified complications, E78.5 - Hyperlipidemia, unspecified, I10 - Essential (primary) hypertension, Z79.4 - custodial (current) use of insulin TSH reflex Free T4 Today E11.43 - Type 2 diabetes mellitus with diabetic autonomic (poly)neuropathy, E11.65 - Type 2 diabetes mellitus with hyperglycemia, E11.8 - Type 2 diabetes mellitus with unspecified complications, E78.5 - Hyperlipidemia, unspecified, I10 - Essential (primary) hypertension, Z79.4 - custodial (current) use of insulin Medications: New semaglutide (Ozempic) for 4 weeks 0.5 mg (0.736 mL) subcut QWEEK 30 days 3 mL 6RF insulin detemir U-100 (Levemir FlexTouch U-100 Insulin) 50 units (0.5 mL) subcut DAILY 30 days 15 mL 3RF pravastatin 40 mg PO DAILY 90 tabs 3RF Coding Level of Care Code New Pt Level 4 (39328) Complex EM visit Add On G2211 Diagnoses Primary hypertension I10 Hypertension type: primary hypertension Poorly controlled type 2 diabetes mellitus with gastroparesis E11.43; E11.65 Type 2 diabetes mellitus with complication, with long-term current use of insulin E11.8; Z79.4 Additional Codes RANJEET-7 Assessment Billing - RANJEET-7 Assessment Tool: RANJEET-7 Assessment [id number] ([id number])
[2023-10-03 14:31] VITALS: BP 132/70; PULSE 73; RESP 14; TEMP 36.7; O2SAT 97
== END 2023-10-03 15:08 | disposition home or self-care (01) ==
PROVIDERS: PCP Family Medicine; Visit Provider Physician Assistant
DX: E11.43 Type 2 diabetes mellitus with diabetic autonomic (poly)neuropathy (principal); E11.65 Type 2 diabetes mellitus with hyperglycemia; E11.8 Type 2 diabetes mellitus with unspecified complications; Z79.4 Long term (current) use of insulin; I10 Essential (primary) hypertension
CPT/HCPCS: 83036; 99204

== ENCOUNTER 2023-11-19 13:58 | Outpatient (REF) | payer BC, SELFPAY ==
--- NOTE | ~2023-11-19 | MM_ITS ---
EXAMINATION: MM SCREENING DIGITAL BREAST TOMOSYNTHESIS, BILATERAL CLINICAL INFORMATION: Screening. Asymptomatic. The patient has a history of benign left excisional biopsy. COMPARISON: Mammography: This study is compared with prior exams dating back to 2021. TECHNIQUE: Digital breast tomosynthesis is performed in both the craniocaudal and mediolateral oblique views along with computer-aided detection (CAD). Synthesized 2D images are generated from the tomosynthesis. FINDINGS: There are scattered areas of fibroglandular density (ACR BI-RADS breast composition Category b). There are no significant masses, abnormal calcifications, or other abnormalities. MM/MM tomosynthesis screening BI IMPRESSION: No mammographic evidence of malignancy. ASSESSMENT: BI-RADS BI-RADS 1 - Negative RECOMMENDATION: Routine annual mammography screening. 1 year F/U This examination should not preclude the clinical evaluation of a suspicious palpable abnormality. This patient's information was entered into a reminder system with a target due date for their next mammogram.
== END 2023-11-19 13:59 | disposition home or self-care (01) ==
LOC: HO.MAMMO 13:58
PROVIDERS: PCP Family Medicine; Visit Provider Family Medicine
DX: Z12.31 Encounter for screening mammogram for malignant neoplasm of breast (principal)
CPT/HCPCS: 77063; 77067

== ENCOUNTER → 2023-11-19 14:35 | Outpatient (BNV) | payer SELFPAY | PROVIDERS: PCP Family Medicine; Visit Provider Radiology Diagnostic Radiology | DX: Z12.31 Encounter for screening mammogram for malignant neoplasm of breast (principal) | CPT/HCPCS: 77063; 77067 ==

== ENCOUNTER 2024-03-19 07:59 | Outpatient (AMB) | payer OTHER, SELFPAY ==
--- NOTE | 2024-03-19 08:20 | A.OFFPC_ITS ---
Vital Signs 03/19/24 08:25 Height 5 ft 6 in Weight 220 lb BMI 35.5 BMI Reason not done Patient refused/unable BP 130/78 Blood Pressure Location Lt brachial Position Sitting Pulse 72 Pulse Source Pulse Oximeter Pulse Oximetry (%) 99 Oxygen Delivery Method Room Air Intake Visit Reasons: Annual PE Intake Note: Physical. Needs a letter for weight loss surgery. Ran out of hctz for about 5 days. Allergies No Known Allergies Allergy (Verified 03/19/24 08:21) Medication List - Last Reconciled 03/19/24 by Abigail Larson PA-C hydrochlorothiazide 12.5 mg PO DAILY insulin detemir U-100 (Levemir FlexTouch U-100 Insulin) 50 units (0.5 mL) subcut DAILY 30 days lisinopril 10 mg PO DAILY pravastatin 40 mg PO DAILY Tobacco use date assessed: 10/03/23 Dental Screening Dental Screen Date: 10/03/23 HPI Annual PE HPI Details Patient is a 54-year-old female who presents today for a physical exam. She was seen about 7 months ago to establish care and because she was out of her diabetic medication. She was supposed to return in a couple weeks to be reassessed but states that she never did this. She states that she had insurance issues at that time. I had also ordered labs at her last appointment but she never got them do. Endo: She states that she does not have a glucometer at home anymore and has been out of the Dexcom sensors for the last few months because insurance stopped covering it. She switch to [employer]. For the last few months she also has only been using Levemir 50 units at night and has been off of the Ozempic. She states that insurance no longer covered the Ozempic and she does not think it is covering the Levemir so she is using insulin. Her A1c today in the office is 12.6. She has never been hypoglycemic. She did have diabetic Education when she was 1st diagnosed with type 2 diabetes in 2011. She states having her blood sugar be high like this is shocking to her because she has no symptoms. -She has been out of all testing supplie s. She states her new insurance is not covering ozempic. -she was stopped on metformin in 2020 fo r an unknown reason. She currently denies any vision changes, numbness, tingling, abdominal pain, nausea, vomiting or confusion. No headache. General: Recently met with Dr. Arboleda to discuss bariatric surgery. She states that they have a follow up booked later this month. HEENT: Right ear feels blocked. No pain. CV: bp today is 130/78. She is on hydrochlorothiazide and lisinopril. She is on pravastatin. No chest pain or shortness a breath Mammo: UTD Pap: s/p hysterectomy Colonoscopy: UTD, 2022 due in 2027 [facility] Medical History (Updated 03/19/24 @ 12:42 by Abigail Larson PA-C) Diabetes Dyslipidemia Type 2 diabetes mellitus with complication, with long-term current use of insulin Poorly controlled type 2 diabetes mellitus with gastroparesis Gastroparesis Surgical History (Updated 10/03/23 @ 14:57 by Nallely Conrad CMA) History of cholecystectomy H/O lumpectomy Previous section Family History (Updated 03/19/24 @ 08:34 by Nallely Conrad CMA) Mother Asthma HTN (hypertension) Diabetes Cardiovascular disease Father Alcoholism Maternal Grandmother Cancer Paternal Grandmother Cancer Other Substance use Social History (Updated 03/19/24 @ 08:34 by Nallely Conrad CMA) Housing: House Alcohol intake: current Patient Tobacco Use Status: Never used Tobacco e-Cigarette/Vaping Use: Never Used service: Yes Current occupational status: employed Current occupation: Educatpr Current occupational exposures/hazards: No Cognitive needs: No Hearing needs: No Vision needs: No Questionnaire PHQ-9 Over the last 2 weeks, how often have you been bothered by any of the following problems? 1. Little interest or pleasure in doing things: not at all 2. Feeling down, depressed, or hopeless: not at all 3. Trouble falling or staying asleep, or sleeping too much: not at all 4. Feeling tired or having little energy: not at all 5. Poor appetite or overeating: not at all 6. Feeling bad about yourself - or that you are a failure or have let yourself or your family down: not at all 7. Trouble concentrating on things, such as reading the newspaper or watching television: not at all 8. Moving or speaking so slowly that other people could have noticed. Or the opposite - being so fidgety or restless that you have been moving around a lot more than usual: not at all 9. Thoughts that you would be better off or of hurting yourself in some way: not at all Total score: 0 Depression Screening Interpretation: Negative Depression Screening Done: Yes 45042 - PHQ-9 Billing: Yes Source: Developed by Drs. Hever Solorzano, Nelly Feliz, Neto Darling and colleagues, with an educational alden from [employer]. Thrive Questionnaire Date Thrive assessed: 03/16/24 I am a: Patient What is your living situation today?: I have a steady place to live Within the past 12 months, did the food you bought not last and you didn't have the money to get more?: Never true Within the past 12 months, did you worry whether your food would run out before you got money to buy more?: Never true Do you have trouble paying for medicines?: No Do you have trouble getting transportation to medical appointments?: No Do you have trouble paying your heating and electricity bill?: No Do you have trouble taking care of your child, family member or friend?: No Do you have trouble with day-to-day activities such as bathing, preparing meals, shopping, managing finances, etc.?: No Are you currently unemployed and looking for a job?: No Are you interested in more education?: No Please select the resources that you would like help with: None Currently or been in a relationship where the following occur: No concerns reported THRIVE Score: 0 AUDIT C Alcohol Use Questionnaire (AUDIT-C) 1. How often do you have a drink containing alcohol?: Monthly or less 2. How many drinks containing alcohol do you have on a typical day when you are drinking?: 1 or 2 3. How often do you have six or more drinks on one occasion?: Never Total Score: 1 Score Reviewed/Action Taken: Yes RANJEET-7 AMB Questionnaire RANJEET-7 Date RANJEET - 7 assessed: 10/03/23 Feeling nervous, anxious, or on edge: 0 = Not at all Not being able to stop or control worryin = Not at all Worrying too much about different things: 0 = Not at all Trouble relaxin = Not at all Being so restless that it is hard to sit still: 0 = Not at all Becoming easily annoyed or irritable: 0 = Not at all Feeling afraid as if something awful might happen: 0 = Not at all Total RANJEET-7 score (0-4 normal; 5-9 mild; 10-14 moderate; 15-21 severe): 0 Source: Developed by Drs. Hever Solorzano, Nelly Feliz, Neto Darling and colleagues, with an educational alden from [employer]. RANJEET-7 Assessment Billing RANJEET-7 Assessment Tool: RANJEET-7 Assessment 02783 Physical exam (Primary Care) Vital Signs: Last Vital Signs Pulse 72 03/19/24 08:25 BP 130/78 03/19/24 08:25 Pulse Ox 99 03/19/24 08:25 Oxygen Delivery Method Room Air 03/19/24 08:25 BMI result Body Mass Index 35.5 Tobacco/Smoking Status: Tobacco use Status Tobacco use date assessed 10/03/23 03/19/24 08:21 Patient Tobacco Use Status Never used Tobacco 03/19/24 08:34 e-Cigarette/Vaping Use Never Used 03/19/24 08:34 PHQ-9: PHQ-9 Score PHQ-9: Total score 0 03/19/24 09:32 Depression Screening Interpretation: Negative Thrive Assessment: Date of Thrive Assessment Date Thrive assessed 03/16/24 03/19/24 08:21 Currently or been in a relationship where the following occur: No concerns reported Const Orientation/consciousness: patient oriented x3 HENMT Ears: hearing grossly normal bilaterally, TM normal on the left and unable to visualize TM (Cerumen impaction) on the right General nose exam: No nasal polyps present Face and sinus: Yes sinuses nontender Mouth: Normal oral and palatal mucosa present Eyes Pupils: Equal, round and reactive pupils present EOM: EOMs intact bilaterally Neck Neck: Yes full ROM and Yes no lymphadenopathy Thyroid: Thyroid normal Chest Chest palpation & inspection: normal inspection of the chest Resp Auscultation: clear to auscultation bilaterally Cardio Rate: regular rate Rhythm: regular rhythm Heart sounds: S1 normal heart sound present and S2 normal heart sound present Peripheral pulses: Peripheral pulses 2+ throughout GI Other: Soft, nontender Auscultation: normal bowel sounds Rectal Exam - Female: deferred General: Yes no CVA tenderness Back/Spine/Pelvis Other: Nontender Back: no CVA tenderness Skin General skin exam: no rashes or lesions noted Neuro General: patient oriented x3, gait normal, CN's II-XI intact bilaterally and deep tendon reflexes 2+ bilaterally Cranial nerves: Yes Equal, round and reactive pupils present Motor exam (neuro): 5/5 motor strength present throughout Sensory Exam: double simultaneous stimulation for sensation normal Coordination: [id number] test normal and Romberg test negative Extrem General: Yes normal to inspection and Yes full ROM Psych Affect: normal affect Attitude: cooperative Thought process: Normal thought process present Thought content: Normal thought content present Insight: Good insight present (Psych) Judgement: Good judgement present (Psych) Results AMB Hemoglobin A1c AMB Hemoglobin A1c 12.6 % Last Edit by Nallely Conrad CMA on 03/19/24 09:3 2 Results Reviewed Results Reviewed: Laboratory Last Values Hgb A1c (Clinic) 12.6 % (4.0-6.0) H 03/19/24 09:31 Laboratory Tests 10/26/21 01/14/22 10/03/23 09:15 13:19 14:35 Sodium 140 Potassium 3.3 Chloride 102 Carbon Dioxide 27 Anion Gap 14 BUN 13 Creatinine 1.23 Estim Creat Clear Calc 60.2 Estimated GFR > 60 46 Hgb A1c (Clinic) 8.8 H AST 24 ALT 26 Alkaline Phosphatase 75 Troponin I High Sens < 3.5 B-Natriuretic Peptide < 10 ASSESSMENT: BI-RADS BI-RADS 1 - Negative RECOMMENDATION: Routine annual mammography screening. Coding Level of Care Code Est Pt Level 3 (19594) Est Pt Prev Care 40-64y(05187) Diagnoses Routine general medical examination at a health care facility Z00.00 Type 2 diabetes mellitus with complication, with long-term current use of insulin E11.8; Z79.4 Primary hypertension I10 Hypertension type: primary hypertension Dyslipidemia E78.5 Additional Codes PHQ-9 - 24403 - PHQ-9 Billing: Yes ([id number]) RANJEET-7 Assessment Billing - RANJEET-7 Assessment Tool: RANJEET-7 Assessment 06110 ([id number]) Assessment & Plan Assessment & Plan (1) Routine general medical examination at a health care facility: Code(s): Z00.00 - Encounter for general adult medical examination without abnormal findings Plan: Health maintenance reviewed. Labs ordered. Advised to complete today. (2) Type 2 diabetes mellitus with complication, with long-term current use of insulin: Code(s): E11.8 - Type 2 diabetes mellitus with unspecified complications; Z79.4 - marine oil terminal superintendent (current) use of insulin Category: Medical Plan: We spent more than 1 hour in [id number] time today discussing diabetes, the complications associated with diabetes including blindness, stroke, heart attack, increased risk of infection, amputations, kidney disease etc.. Ozempic not currently on formulary. We will switch to Trulicity. Discussed risks and benefits and adverse effects of this medication including nausea, vomiting, retinopathy, increased risk of pancreatitis, increased risk of thyroid cancer. I will switch from Levemir to Lantus. Pen needles ordered. We will start her on Humalog 4 units 3 times a day with meals I have ordered a glucometer with testing supplies Freestyle Lynette 3 ordered. She has experience with the Dexcom but we will try the Lynette 3. Downloaded the [employer] Lynette apoorva. advised her to come in his she needs help setting this up. We reviewed signs and symptoms of hyper and hypoglycemia that would require emergent medical treatment. Glucose tabs ordered as needed for hypoglycemia. Reviewed rule of 15s. (3) Hypertension: Code(s): I10 - Essential (primary) hypertension Category: Medical Qualifiers: Hypertension type: primary hypertension Qualified Code(s): I10 - Essential (primary) hypertension Plan: Refilled medication today. Has been out for the last week. (4) Dyslipidemia: Code(s): E78.5 - Hyperlipidemia, unspecified Category: Medical Plan: Had enough pravastatin. We will continue with this regimen check lipids and LFTs. Orders: Orders AMB Hemoglobin A1c Today E11.8 - Type 2 diabetes mellitus with unspecified complications, Z79.4 - marine oil terminal superintendent (current) use of insulin Medications: New hydrochlorothiazide 12.5 mg PO DAILY 90 caps 3RF lisinopril 10 mg PO DAILY 90 tabs 3RF insulin glargine (Lantus Solostar U-100 Insulin) 50 units (0.5 mL) subcut QPM 15 mL 5RF blood-glucose meter (OneTouch Verio Flex Meter) Use daily As directed to monitor blood sugars 1 ea 0RF E11.649 - Type 2 diabetes mellitus with hypoglycemia w ithout coma, Z79.4 - marine oil terminal superintendent (current) use of insulin blood sugar diagnostic (OneTouch Verio test strips) use 4 x daily As directed to monitor blood sugars 100 ea 1RF dulaglutide (Trulicity) 0.75 mg (0.5 mL) subcut QWEEK 2 mL 3RF glucose (Dex4 Glucose) until symptoms of low blood sugar are controlled 16 grams (4 x 4 gram) PO Q15M PRN 100 tabs 2RF hypoglycemia carbamide peroxide 6.5% (Debrox) 5 drps otic (ear) right Q12H 15 mL 0RF 7 days blood-glucose sensor (FreeStyle Lynette 3 Sensor device) Apply every 14 days As directed to monitor blood glucose 2 ea 11RF E11.9 - Type 2 diabetes mellitus without complications, Z79.4 - marine oil terminal superintendent (current) use of insulin lancets ([employer] UltraSoft 2 Lancet) use daily As directed to monitor blood sugars 100 ea 2RF pen needle, diabetic (BD Ultra-Fine Angelique Pen Needle) Use 4 x daily As directed 100 ea 5RF insulin lispro (Humalog KwikPen (U-100) Insulin) with breakfast, lunch and supper 4 units (0.04 mL) subcut TID 15 mL 3RF Refilled pravastatin 40 mg PO DAILY 90 tabs 3RF Discontinued insulin detemir U-100 (Levemir FlexTouch U-100 Insulin) Discontinued Reason: Doctor's Order 50 units (0.5 mL) subcut DAILY 30 days 15 mL 3RF
[2024-03-19 08:25] VITALS: BP 130/78; PULSE 72; O2SAT 99; BMI 35.5
== END 2024-03-19 09:01 | disposition home or self-care (01) ==
PROVIDERS: PCP Physician Assistant; Visit Provider Physician Assistant
DX: Z00.00 Encounter for general adult medical examination without abnormal findings (principal); E11.69 Type 2 diabetes mellitus with other specified complication; Z79.4 Long term (current) use of insulin; I10 Essential (primary) hypertension; E78.5 Hyperlipidemia, unspecified

== ENCOUNTER → 2024-03-19 07:59 | Outpatient (BNVA) | payer SELFPAY | PROVIDERS: PCP Family Medicine; Visit Provider Physician Assistant | DX: Z00.00 Encounter for general adult medical examination without abnormal findings (principal); E11.8 Type 2 diabetes mellitus with unspecified complications; I10 Essential (primary) hypertension; E78.5 Hyperlipidemia, unspecified; Z79.4 Long term (current) use of insulin | CPT/HCPCS: 83036; 96127 ==

== ENCOUNTER 2024-04-08 09:21 | Outpatient (AMB) | payer OTHER, SELFPAY ==
--- NOTE | 2024-04-08 09:27 | A.OFFPC_ITS ---
Vital Signs 04/08/24 09:36 Height 5 ft 6 in Weight 207 lb 6 oz BMI 33.5 BP 122/78 Blood Pressure Location Lt brachial Position Sitting Pulse 73 Pulse Source Pulse Oximeter Pulse Oximetry (%) 97 Oxygen Delivery Method Room Air Intake Visit Reasons: 2 week fu dm Intake Note: Follow up Allergies No Known Allergies Allergy (Verified 04/08/24 09:30) Medication List - Last Reconciled 04/08/24 by Abigail Larson PA-C blood sugar diagnostic (OneTouch Verio test strips) use 4 x daily As directed to monitor blood sugars blood-glucose meter (OneTouch Verio Flex Meter) Use daily As directed to monitor blood sugars carbamide peroxide 6.5% (Debrox) 5 drps otic (ear) right Q12H 7 days cholecalciferol (vitamin D3) . dulaglutide (Trulicity) 0.75 mg (0.5 mL) subcut QWEEK glucose (Dex4 Glucose) 16 grams (4 x 4 gram) PO Q15M PRN hydrochlorothiazide 12.5 mg PO DAILY insulin glargine (Lantus Solostar U-100 Insulin) 50 units (0.5 mL) subcut QPM insulin lispro (Humalog KwikPen (U-100) Insulin) 4 units (0.04 mL) subcut TID lancets ([employer]Touch UltraSoft 2 Lancet) use daily As directed to monitor blood sugars lisinopril 10 mg PO DAILY pen needle, diabetic (BD Ultra-Fine Angelique Pen Needle) Use 4 x daily As directed pravastatin 40 mg PO DAILY thiamine HCl (vitamin B1) . Tobacco use date assessed: 10/03/23 Dental Screening Dental Screen Date: 10/03/23 HPI 2 week fu dm HPI Details Pt is a 54 y/o female who presents today for a follow up. She was seen a couple weeks ago it was noted to have an A1c of 12. Endo: She has tried metformin in the past but had GI distress with it. States it makes her feel sick. At our last visit I did order her a freestyle Lynette 3 however, it was out of stock. I also started her on Lantus 50 units as she had insurance changes in Levemir was no longer covered. I added Humalog to her regimen. She is on Humalog 4 units 3 times a day. She did bring in her glucometer today and she has been checking her blood sugars and they range from 96-250. On average they are closer to 150. She is checking multiple times a day. Denies any hypoglycemic events. She did have 1 day where her blood sugar was 400 and she states that that was because she had a dental infection. I did order her Trulicity as Ozempic was no longer on her plan. She states that the Trulicity needed a prior authorization. She has not yet started this. General: Recently met with Dr. Arboleda to discuss bariatric surgery. She understands she can not go for surgery until her A1c is better. CV: bp today is 122/78. She is on hydrochlorothiazide and lisinopril. She is on pravastatin. No chest pain or shortness a breath Mammo: UTD Pap: s/p hysterectomy Colonoscopy: UTD, 2022 due in 2027 [facility] Medical History (Updated 03/19/24 @ 12:42 by Abigail Larson PA-C) Diabetes Dyslipidemia Type 2 diabetes mellitus with complication, with long-term current use of insulin Poorly controlled type 2 diabetes mellitus with gastroparesis Gastroparesis Surgical History (Updated 10/03/23 @ 14:57 by Nallely Conrad CMA) History of cholecystectomy H/O lumpectomy Previous section Family History (Updated 03/19/24 @ 08:34 by Nallely Conrad CMA) Mother Asthma HTN (hypertension) Diabetes Cardiovascular disease Father Alcoholism Maternal Grandmother Cancer Paternal Grandmother Cancer Other Substance use Social History (Updated 03/19/24 @ 08:34 by Nallely Conrad CMA) Housing: House Alcohol intake: current Patient Tobacco Use Status: Never used Tobacco e-Cigarette/Vaping Use: Never Used service: Yes Current occupational status: employed Current occupation: Educatpr Current occupational exposures/hazards: No Cognitive needs: No Hearing needs: No Vision needs: No Questionnaire Thrive Questionnaire Date Thrive assessed: 03/16/24 I am a: Patient What is your living situation today?: I have a steady place to live Within the past 12 months, did the food you bought not last and you didn't have the money to get more?: Never true Within the past 12 months, did you worry whether your food would run out before you got money to buy more?: Never true Do you have trouble paying for medicines?: No Do you have trouble getting transportation to medical appointments?: No Do you have trouble paying your heating and electricity bill?: No Do you have trouble taking care of your child, family member or friend?: No Do you have trouble with day-to-day activities such as bathing, preparing meals, shopping, managing finances, etc.?: No Are you currently unemployed and looking for a job?: No Are you interested in more education?: No Please select the resources that you would like help with: None Currently or been in a relationship where the following occur: No concerns reported THRIVE Score: 0 RANJEET-7 AMB Questionnaire RANJEET-7 Date RANJEET - 7 assessed: 10/03/23 Source: Developed by Drs. Heevr Solorzano, Nelly Feliz, Neto Darling and colleagues, with an educational alden from [employer]. Physical exam (Primary Care) Vital Signs: Last Vital Signs Pulse 73 04/08/24 09:36 BP 122/78 04/08/24 09:36 Pulse Ox 97 04/08/24 09:36 Oxygen Delivery Method Room Air 04/08/24 09:36 BMI result Body Mass Index 33.5 Tobacco/Smoking Status: Tobacco use Status Tobacco use date assessed 10/03/23 04/08/24 09:28 Patient Tobacco Use Status Never used Tobacco 04/08/24 09:28 e-Cigarette/Vaping Use Never Used 04/08/24 09:28 Thrive Assessment: Date of Thrive Assessment Date Thrive assessed 03/16/24 04/08/24 09:28 Currently or been in a relationship where the following occur: No concerns reported Const Orientation/consciousness: patient oriented x3 HENMT Ears: hearing grossly normal bilaterally Neck Thyroid: Thyroid normal Lymphatic: no lymphadenopathy noted Resp Auscultation: clear to auscultation bilaterally Cardio Rate: regular rate Rhythm: regular rhythm Heart sounds: S1 normal heart sound present and S2 normal heart sound present GI Inspection: Yes normal to inspection Palpation (GI): Soft to palpation and Other GI palpation findings present (nontender, no cva tenderness) Auscultation: normoactive bowel sounds Rectal Exam - Female: deferred Skin General skin exam: no rashes or lesions noted Neuro General: patient oriented x3, gait normal and no focal motor deficits Coding Level of Care Code Est Pt Level 4 (74850) Complex EM visit Add On G2211 Diagnoses Type 2 diabetes mellitus with complication, with long-term current use of insulin E11.8; Z79.4 Primary hypertension I10 Hypertension type: primary hypertension Dyslipidemia E78.5 Assessment & Plan Assessment & Plan (1) Type 2 diabetes mellitus with complication, with long-term current use of insulin: Code(s): E11.8 - Type 2 diabetes mellitus with unspecified complications; Z79.4 - [facility] (current) use of insulin Category: Medical Plan: Prior Auth initiated for Trulicity today. Patient has failed metformin in the past. Freestyle Lynette 2 ordered as this is more likely to be in stock. Familiar with how to use CGM. In the past was on Dexcom due to insurance she had to switch. Continue with the Lantus and Humalog Reviewed rule of 15. (2) Hypertension: Code(s): I10 - Essential (primary) hypertension Category: Medical Qualifiers: Hypertension type: primary hypertension Qualified Code(s): I10 - Essential (primary) hypertension Plan: WNL. Continue current regimen (3) Dyslipidemia: Code(s): E78.5 - Hyperlipidemia, unspecified Category: Medical Plan: As above. Medications: New flash glucose sensor (FreeStyle Lynette 2 Sensor kit) use daily As directed to monitor glucose 2 ea 11RF Z79.4 - director long term care (current) use of insulin flash glucose scanning reader (FreeStyle Lynette 2 [place]) use daily As directed to monitor blood glucose readings 1 ea 0RF Z79.4 - [facility] (current) use of insulin Refilled dulaglutide (Trulicity) 0.75 mg (0.5 mL) subcut QWEEK 2 mL 3RF
[2024-04-08 09:36] VITALS: BP 122/78; PULSE 73; O2SAT 97; BMI 33.5
== END 2024-04-08 10:17 | disposition home or self-care (01) ==
PROVIDERS: PCP Physician Assistant; Visit Provider Physician Assistant
DX: E11.8 Type 2 diabetes mellitus with unspecified complications (principal); Z79.4 Long term (current) use of insulin; I10 Essential (primary) hypertension; E78.5 Hyperlipidemia, unspecified

== ENCOUNTER 2024-05-14 13:30 | Outpatient (AMB) | payer OTHER, SELFPAY ==
--- NOTE | 2024-05-14 13:45 | MHC.OFFVIS ---
Vital Signs 05/14/24 13:47 Weight 207 lb 6 oz BP 108/60 Blood Pressure Location Rt brachial Position Sitting Respiration 12 Pulse 60 Pulse Source Auscultation Intake Visit Reasons: dm Allergies No Known Allergies Allergy (Verified 04/08/24 09:30) Medication List - Last Reconciled 05/14/24 by Abigail Larson PA-C blood sugar diagnostic (OneTouch Verio test strips) use 4 x daily As directed to monitor blood sugars blood-glucose meter (OneTouch Verio Flex Meter) Use daily As directed to monitor blood sugars carbamide peroxide 6.5% (Debrox) 5 drps otic (ear) right Q12H 7 days cholecalciferol (vitamin D3) . dulaglutide (Trulicity) 0.75 mg (0.5 mL) subcut QWEEK flash glucose scanning reader (FreeStyle Lynette 2 [place]) use daily As directed to monitor blood glucose readings flash glucose sensor (FreeStyle Lynette 2 Sensor kit) use daily As directed to monitor glucose glucose (Dex4 Glucose) 16 grams (4 x 4 gram) PO Q15M PRN hydrochlorothiazide 12.5 mg PO DAILY insulin glargine (Lantus Solostar U-100 Insulin) 50 units (0.5 mL) subcut QPM insulin lispro (Humalog KwikPen (U-100) Insulin) 4 units (0.04 mL) subcut TID lancets ([employer] Outlaw Bar and GrillTouch UltraSoft 2 Lancet) use daily As directed to monitor blood sugars lisinopril 10 mg PO DAILY pen needle, diabetic (BD Ultra-Fine Angelique Pen Needle) Use 4 x daily As directed pravastatin 40 mg PO DAILY thiamine HCl (vitamin B1) . HPI HPI dm: Details: Pt is a 54 y/o female who presents today for a follow up. She was seen a couple weeks ago it was noted to have an A1c of 12. Endo: metformin causes GI upset, Lantus 50 units, humalog sliding scale, and trulicity 0.75 mg weekly. CGM- hyperglycemic 5%, in range 95%, 0% hypoglycemia General: Recently met with Dr. Arboleda to discuss bariatric surgery. She understands she can not go for surgery until her A1c is better. CV: bp today is 108/60. She is on hydrochlorothiazide and lisinopril. She is on pravastatin. No chest pain or shortness a breath Mammo: UTD Pap: s/p hysterectomy Colonoscopy: UTD, 2022 due in 2027 [facility] Medical History (Updated 03/19/24 @ 12:42 by Abigail Larson PA-C) Diabetes Dyslipidemia Type 2 diabetes mellitus with complication, with long-term current use of insulin Poorly controlled type 2 diabetes mellitus with gastroparesis Gastroparesis Surgical History (Updated 10/03/23 @ 14:57 by Nallely Conrad CMA) History of cholecystectomy H/O lumpectomy Previous section Family History (Updated 03/19/24 @ 08:34 by Nallely Conrad CMA) Mother Asthma HTN (hypertension) Diabetes Cardiovascular disease Father Alcoholism Maternal Grandmother Cancer Paternal Grandmother Cancer Other Substance use Social History (Updated 03/19/24 @ 08:34 by Nallely Conrad CMA) Housing: House Alcohol intake: current Patient Tobacco Use Status: Never used Tobacco e-Cigarette/Vaping Use: Never Used service: Yes Current occupational status: employed Current occupation: Educat[employer] Current occupational exposures/hazards: No Cognitive needs: No Hearing needs: No Vision needs: No Results Reviewed Results Reviewed: Laboratory Tests 01/14/22 03/19/24 13:19 09:31 Sodium 140 Potassium 3.3 Chloride 102 Carbon Dioxide 27 Anion Gap 14 BUN 13 Creatinine 1.23 Estim Creat Clear Calc 60.2 Estimated GFR 46 Random Glucose 185 H Hgb A1c (Clinic) 12.6 H AST 24 ALT 26 B-Natriuretic Peptide < 10 Assessment & Plan Assessment & Plan (1) Hypertension: Code(s): I10 - Essential (primary) hypertension Category: Medical Qualifiers: Hypertension type: primary hypertension Qualified Code(s): I10 - Essential (primary) hypertension Plan: bp wnl continue current plan (2) Type 2 diabetes mellitus with complication, with long-term current use of insulin: Code(s): E11.8 - Type 2 diabetes mellitus with unspecified complications; Z79.4 - intermediate project manager (current) use of insulin Category: Medical Plan: increase trulicity to 1.5 mg weekly continue lantus 50 units nightly continue humalog 1-4 units sliding scale check labs today (3) Dyslipidemia: Code(s): E78.5 - Hyperlipidemia, unspecified Category: Medical Plan: continue pravastatin Orders: Orders Comprehensive [place]. Panel Fast Today E11.8 - Type 2 diabetes mellitus with unspecified complications, E78.5 - Hyperlipidemia, unspecified, I10 - Essential (primary) hypertension, Z79.4 - intermediate project manager (current) use of insulin Hemoglobin A1c Today E11.8 - Type 2 diabetes mellitus with unspecified complications, E78.5 - Hyperlipidemia, unspecified, I10 - Essential (primary) hypertension, R73.01 - Impaired fasting glucose, Z79.4 - skilled nursing (current) use of insulin Microalbumin, Random (w Creat) Today E11.8 - Type 2 diabetes mellitus with unspecified complications, E78.5 - Hyperlipidemia, unspecified, I10 - Essential (primary) hypertension, Z79.4 - intermediate project manager (current) use of insulin Medications: New dulaglutide (Trulicity) 1.5 mg (0.5 mL) subcut QWEEK 2 mL 3RF Discontinued dulaglutide (Trulicity) Discontinued Reason: Doctor's Order 0.75 mg (0.5 mL) subcut QWEEK 2 mL 3RF Coding Level of Care Code Est Pt Level 4 (98313) Complex EM visit Add On G2211 Diagnoses Primary hypertension I10 Hypertension type: primary hypertension Type 2 diabetes mellitus with complication, with long-term current use of insulin E11.8; Z79.4 Dyslipidemia E78.5
[2024-05-14 13:47] VITALS: BP 108/60; PULSE 60; RESP 12
== END 2024-05-14 14:04 | disposition home or self-care (01) ==
PROVIDERS: PCP Physician Assistant; Visit Provider Physician Assistant
DX: I10 Essential (primary) hypertension (principal); E11.8 Type 2 diabetes mellitus with unspecified complications; Z79.4 Long term (current) use of insulin; E78.5 Hyperlipidemia, unspecified

== ENCOUNTER → 2024-05-14 13:30 | Outpatient (BNVA) | payer OTHER, SELFPAY | PROVIDERS: PCP Physician Assistant; Visit Provider Physician Assistant ==

== ENCOUNTER 2024-05-14 14:12 | Outpatient (REF) | payer OTHER, SELFPAY ==
[2024-05-14 17:35] LABS: MANUAL DIFF FLAG NO
[2024-05-14 18:04] LABS: Alanine Aminotransferase 29 U/L (0-31); Albumin Level 4.2 g/dL (3.5-5.0); Alkaline Phosphatase 87 U/L (39-117); Anion Gap 11 (12-20); Aspartate Amino Transferase 26 U/L (5-31); Bilirubin Total 0.4 mg/dL (0.0-1.0); Blood Urea Nitrogen 12 mg/dL (9-16); Calcium 9.7 mg/dL (8.4-10.2); Carbon Dioxide 28 mmol/L (22-29); Chloride 104 mmol/L (96-108); Cholesterol 147 mg/dL (<200); Estimated Glomerular Filt Rate > 60; Glucose Fasting 90 mg/dL (60-99); HDL Cholesterol 37 mg/dL (>40); LDL Cholesterol Calculated 90 mg/dL (<100); Potassium 3.1 mmol/L (3.3-5.1); Sodium 140 mmol/L (135-145); Total Protein 8.1 g/dL (6.5-8.0); Triglycerides 103 mg/dL (<150)
[2024-05-14 18:05] LABS: Basophils Percent Auto 0.6 % (0-2); Eosinophils Percent Auto 0.8 % (0-4); Hematocrit 35.8 % (37.0-47.0); Imm Gran Abs Auto 0.02 X10*3/uL (0.00-0.03); Imm Gran Pct Auto 0.4 % (0.0-0.4); Lymphocytes Absolute Auto 1.8 X10*3/uL (1.2-4.9); Lymphocytes Percent Auto 36.9 % (20-40); Mean Corpuscular HGB Conc 33.5 g/dl (31.0-35.0); Mean Corpuscular Hemoglobin 28.5 pg (27.0-33.0); Mean Platelet Volume 9.8 fL (9.4-12.3); Monocytes Absolute Auto 0.3 X10*3/uL (0.1-1.2); Monocytes Percent Auto 6.7 % (2-11); Neutrophils Absolute Auto 2.7 x10*3/uL (2.0-8.3); Neutrophils Percent Auto 54.6 % (45-73); Platelet Count 456 X10*3/uL (160-400); Red Blood Count 4.21 X10*6/uL (4.20-5.50); Red Cell Distribution Width 12.4 % (11.0-16.0)
[2024-05-14 18:11] LABS: Creatinine Urine 115.66 mg/dL; Microalbum/Creatinine Ratio Ur 12.1 ug/mg cr (<30)
[2024-05-15 09:06] LABS: Estimated Average Glucose 212 mg/dL; Hemoglobin A1C 295.3748 umol/L; Total Hemoglobin (HGBA1C) 3964.9176 umol/L
== END 2024-05-14 14:13 | disposition home or self-care (01) ==
LOC: HO.WFDLDS 14:12
PROVIDERS: Visit Provider Physician Assistant
DX: E11.43 Type 2 diabetes mellitus with diabetic autonomic (poly)neuropathy (principal); E11.65 Type 2 diabetes mellitus with hyperglycemia; Z79.4 Long term (current) use of insulin; I10 Essential (primary) hypertension; E78.5 Hyperlipidemia, unspecified
CPT/HCPCS: 36415; 80053; 80061; 82043; 82570; 83036; 84443; 85025

== ENCOUNTER 2024-07-01 08:34 | Outpatient (AMB) | payer OTHER, SELFPAY ==
--- NOTE | 2024-07-01 08:37 | A.OFFPC_ITS ---
Vital Signs 07/01/24 08:51 Height 5 ft 6 in Weight 188 lb 8 oz BMI 30.4 BP 102/68 Blood Pressure Location Lt brachial Position Sitting Respiration 14 Pulse 82 Pulse Source Pulse Oximeter Pulse Oximetry (%) 97 Oxygen Delivery Method Room Air Intake Visit Reasons: labs and dm Intake Note: Follow up labs and diabetes.Dr Gray had pt stop Lantus. Had gastric sleeve surgery last week, had a1c done 6.9 Short Order Cook Required: No Allergies No Known Allergies Allergy (Verified 07/01/24 08:40) Medication List - Last Reconciled 07/01/24 by Abigail Larson PA-C [bariatric multivitamin epidural] blood sugar diagnostic (StackifyTouch Verio test strips) use 4 x daily As directed to monitor blood sugars blood-glucose meter (OneTouch Verio Flex Meter) Use daily As directed to monitor blood sugars docusate sodium 100 mg PO BID dulaglutide (Trulicity) 1.5 mg (0.5 mL) subcut QWEEK famotidine mg PO DAILY flash glucose scanning reader (FreeStyle Lynette 2 [place]) use daily As directed to monitor blood glucose readings flash glucose sensor (FreeStyle Lynette 2 Sensor kit) use daily As directed to monitor glucose glucose (Dex4 Glucose) 16 grams (4 x 4 gram) PO Q15M PRN hydrochlorothiazide 12.5 mg PO DAILY lancets (OneTouch UltraSoft 2 Lancet) use daily As directed to monitor blood sugars lisinopril 20 mg PO QAM pen needle, diabetic (BD Ultra-Fine Angelique Pen Needle) Use 4 x daily As directed pravastatin 40 mg PO DAILY simethicone (Gas Relief 80 (simethicone)) 80 mg PO DAILY thiamine HCl (vitamin B1) . Tobacco use date assessed: 10/03/23 Dental Screening Dental Screen Date: 10/03/23 HPI labs and dm HPI Details Pt is a 54 y/o female who presents today for a follow up. She is relatively new to me and was initially noted to have uncontrolled diabetes but has been working hard over the last few months. She also was motivated to get weight loss surgery. She states that she had surgery last week. Endo: Her A1c 06/23 was 6 prior to gastric sleeve surgery. Since surgery she has discontinue the Lantus but still any Humalog 2-4 units with meals. She has continued the Trulicity. metformin causes GI upset, Lantus 50 units, humalog sliding scale, and trulicity 1.5 mg weekly. CGM- she has not been wearing her sensors since surgery. General: Had gastric sleeve surgery and hiatal hernia repair Dr. Gray on 06/25. She states the surgery went well she is just feeling tired. CV: bp today is 102/60. She is on hydrochlorothiazide and lisinopril. She is on pravastatin. No chest pain or shortness a breath Mammo: UTD Pap: s/p hysterectomy Colonoscopy: UTD, 2022 due in 2027 [facility] Medical History (Updated 03/19/24 @ 12:42 by Abigail Larson PA-C) Diabetes Dyslipidemia Type 2 diabetes mellitus with complication, with long-term current use of insulin Poorly controlled type 2 diabetes mellitus with gastroparesis Gastroparesis Surgical History (Updated 07/01/24 @ 09:07 by Abigail Larson PA-C) H/O gastric sleeve History of cholecystectomy H/O lumpectomy Previous section Family History Mother Asthma HTN (hypertension) Diabetes Cardiovascular disease Father Alcoholism Maternal Grandmother Cancer Paternal Grandmother Cancer Other Substance use Social History (Updated 07/01/24 @ 08:55 by Nallely Conrad CMA) Housing: House Alcohol intake: current Patient Tobacco Use Status: Never used Tobacco e-Cigarette/Vaping Use: Never Used service: Yes Current occupational status: employed Current occupation: Educatpr Current occupational exposures/hazards: No Cognitive needs: No Hearing needs: No Vision needs: No Questionnaire Thrive Questionnaire Date Thrive assessed: 05/14/24 I am a: Patient What is your living situation today?: I have a steady place to live Within the past 12 months, did the food you bought not last and you didn't have the money to get more?: Never true Within the past 12 months, did you worry whether your food would run out before you got money to buy more?: Never true Do you have trouble paying for medicines?: No Do you have trouble getting transportation to medical appointments?: No Do you have trouble paying your heating and electricity bill?: No Do you have trouble taking care of your child, family member or friend?: No Do you have trouble with day-to-day activities such as bathing, preparing meals, shopping, managing finances, etc.?: No Are you currently unemployed and looking for a job?: No Are you interested in more education?: No Please select the resources that you would like help with: None Currently or been in a relationship where the following occur: No concerns reported THRIVE Score: 0 RANJEET-7 AMB Questionnaire RANJEET-7 Date RANJEET - 7 assessed: 10/03/23 Source: Developed by Drs. Hever Solorzano, Nelly Feliz, Neto Darling and colleagues, with an educational alden from [employer]. Physical exam (Primary Care) Vital Signs: Last Vital Signs Pulse 82 07/01/24 08:51 Resp 14 07/01/24 08:51 BP 102/68 07/01/24 08:51 Pulse Ox 97 07/01/24 08:51 Oxygen Delivery Method Room Air 07/01/24 08:51 BMI result Body Mass Index 30.4 Tobacco/Smoking Status: Tobacco use Status Tobacco use date assessed 10/03/23 07/01/24 08:38 Patient Tobacco Use Status Never used Tobacco 07/01/24 08:55 e-Cigarette/Vaping Use Never Used 07/01/24 08:55 Thrive Assessment: Date of Thrive Assessment Date Thrive assessed 05/14/24 07/01/24 08:38 Currently or been in a relationship where the following occur: No concerns re ported Const Orientation/consciousness: patient oriented x3 HENMT Ears: hearing grossly normal bilaterally Neck Thyroid: Thyroid normal Lymphatic: no lymphadenopathy noted Resp Auscultation: clear to auscultation bilaterally Cardio Rate: regular rate Rhythm: regular rhythm Heart sounds: S1 normal heart sound present and S2 normal heart sound present GI Other: 5 small incisions noted on the abdomen that appear to be healing well. Inspection: Yes normal to inspection Palpation (GI): Soft to palpation and Other GI palpation findings present (nontender, no cva tenderness) Auscultation: normoactive bowel sounds Rectal Exam - Female: deferred Skin General skin exam: no rashes or lesions noted Neuro General: patient oriented x3, gait normal and no focal motor deficits Coding Level of Care Code Est Pt Level 4 (89674) Complex EM visit Add On G2211 Diagnoses Type 2 diabetes mellitus with complication, with long-term current use of ins ulin E11.8; Z79.4 Primary hypertension I10 Hypertension type: primary hypertension S/P gastric sleeve procedure Z90.3 Dyslipidemia E78.5 Assessment & Plan Assessment & Plan (1) Type 2 diabetes mellitus with complication, with long-term current use of insulin: Code(s): E11.8 - Type 2 diabetes mellitus with unspecified complications; Z79.4 - detention (current) use of insulin Category: Medical Plan: hold insulin for now start sensors continue trulicity 1.5 mg weekly (2) Hypertension: Code(s): I10 - Essential (primary) hypertension Category: Medical Qualifiers: Hypertension type: primary hypertension Qualified Code(s): I10 - Essential (primary) hypertension Plan: low end normal d/c hctz continue lisinopril down 20 lbs (3) S/P gastric sleeve procedure: Code(s): Z90.3 - Acquired absence of stomach [part of] Category: Surgical Plan: Incisions healing well. Her abdomen is soft today. Normal bowel movements. Continue follow up with surgery. (4) Dyslipidemia: Code(s): E78.5 - Hyperlipidemia, unspecified Category: Medical Plan: continue pravastatin Medications: Refilled flash glucose sensor (FreeStyle Lynette 2 Sensor kit) use daily As directed to monitor glucose 2 ea 11RF Z79.4 - intermediate designer (current) use of insulin Discontinued hydrochlorothiazide Discontinued Reason: Doctor's Order 12.5 mg PO DAILY 90 caps 3RF Patient Instructions: hold insulin for now put the freestyle sensors stop hydrochlorothiazide continue trulicity, lisinopril, and pravastatin short term follow up 3-4 weeks
--- OUTSIDE RECORDS SUMMARY | 2024-07-01 08:40 | XMS_ITS | Encounter Summary ---
Author Organization [employer] Address [address] [facility] [address] [place] [address] Care Team Providers Care Fellmongery Worker Name Role Phone April Delong MD Primary Care Provide r Encounter Details Date Type Department Care Team (Late st Contact Info) Description 03/12/2023 Orders Only [facility] [address] [place] [address] [phone] April Delong MD [address] [place] [address] Social History Tobacco Use Types Packs/Day Years Used Date Smoking Tobacco: Never Passive Smoke Exposure: Never Smokeless Tobacco: Never Depression Answer Date Recorded Patient Health Questionnaire-9 Score 0 11/27/2022 Housing Stability Answer Date Recorded What is your housing situation today? I have kennedy kaur 02/25/[address] you li ve. Do you have problems with any of the following? None of the above 02/25/2023 Food Insecurity Answer Date Recorded Within the past 12 months, y ou worried that your food would run out before you got money to buy more: Never True 02/25/2023 Within the past 12 months,th e food you bought just didn't last and you didn't have enough money to get more: Never True Transportation Answer Date Recorded In the past 12 months, has l ack of transportation kept you from medical appts, meetings, work or from getting things needed for daily living? No 02/25/2023 Utilities Answer Date Recorded In the past 12 months, has t he electric, gas, oil or water company threatened to shut off services in your home? No 02/25/2023 Depression Answer Date Recorded Patient Health Questionnaire-2 Score 0 11/27/2022 Comments Unknown Sex and Gender Information Value Date Recorded Sex Assigned at Female 03/12/2022 10:39 AM EDT Legal Sex Female 10:39 AM EDT Gender Identity Female 03/12/2022 10:39 AM EDT Sexual Orientation Don't know 03/12/2022 10 :39 AM EDT documented as of this encounter Plan of Treatment Not on file documented as of this encounter Visit Diagnoses Not on filedocumented in this encounter Additional Health Concerns Assessment Noted Time PHQ-9 Depression Total Score: 0 11/28/19 23 3:55 PM EDT documented as of this encounter Care Teams Fellmongery Worker Relationship Specialty Start Date End Date April Delong MD [address] [place] [address] PCP - General Family Medicine 07/21/21 11/20/23 documented as of this encounter
--- OUTSIDE RECORDS SUMMARY | 2024-07-01 08:40 | XMS_ITS | Encounter Summary ---
Author Organization [employer] Address [address] [facility] [address] [place] [address] Care Team Providers Care Hydrate Control Tender Name Role Phone Unavailable Primary Care Provider Unavailabl e Reason for Visit * Reason Comments Med Refill Encounter Details Date Type Department Care Team ([facility] st Contact Info) Description 01/31/2024 Refill [facility] [address] [place] [address] April Delong MD [address] [place] [address] Social History Tobacco Use Types Packs/Day Years [...]
--- OUTSIDE RECORDS SUMMARY | 2024-07-01 08:40 | XMS_ITS | Encounter Summary ---
Author Organization [employer] Address [address] [place] [address] [address] [place] [address] Care Team Providers Care Preboarder Name Role Phone April Delong MD Primary Care Provide r Encounter Details Date Type Department Care Team (Late st Contact Info) Description 11/27/2022 Abstract [facility] [address] [place] [address] April Delong MD [address] [place] [address] Social History Tobacco Use Types Packs/Day Years Used Date Smoking Tobacco: Never Passive Smoke Exposure: Never Smokeless Tobacco: Never Depression Answer Date Recorded Patient Health Questionnaire-9 Score 0 11/27/2022 Depression Answer Date Recorded Patient Health Questionnaire-2 [...] documented as of this encounter Care Teams Preboarder Relationship Specialty Start Date End Date April Delong MD [address] [place], [place] [phone] PCP - General Family Medicine 07/21/21 11/20/23 documented as of this encounter
--- OUTSIDE RECORDS SUMMARY | 2024-07-01 08:40 | XMS_ITS | CLINICAL SUMMARY ---
Author Name Zachariah Courtneyamado CHOI Address [address] [place] [address] Phone Organization [facility] Address [address] [place] [address] Phone Care Team Providers Care Component Engineer Name Role Phone Gale Courtney STEPH Unavailable [phone] Carie Lund Unavailable SOCIAL HISTORY Social History Observation Description Dates Observed Sex Female 1970 None recorded VITAL SIGNS BMI Body Mass Index Percentile Date Systolic Diastolic Head Circumference Head Circumference Percentile Height Oxygen Concentration Pulse Pulse Oximeter Respiratory Rate Temperature Weight Gzrrnn-dtj-oifhvg Percentile 34.0 55 kg/m 2 Unknown 022 141 mmHg 84 mmHg Unknown Unknown 66 [in_i] Unknown 81 /min 96 % 18 /min 98 211 [lb_av] Unknown ALLERGIES AND ADVERSE REACTIONS No known allergies MEDICATIONS Medication Directions Start Date Form Frequency Route Duration Duration Units Status Strength Strength Units of Measure cephalexin Take 1 Capsule (oral) 3 times per day for 10 days capsu le 3 times per day oral 10 days active 500 mg PROBLEM LIST Names Dates Status parohychia [id number] active FAMILY HISTORY ENCOUNTERS Encounter Performer Location E/M Code E/M Label Date Diagnosi s visit Gale Courtney [facility] [address] Office or other outpatient visit (detailed) [id number] parohychia INSURANCE PROVIDERS (PAYERS) Payer name Policy type / Coverage type Policy ID Covered republican ID Insurance type Policy [facility] Blue Cross/[facility] [id number] None Recorded Primary [employer] No information recorded LABORATORY REPORT NARRATIVE NOTE No information recorded PATHOLOGY REPORT NARRATIVE NOTE No information recorded IMAGING NARRATIVE Result Code Result Text Date Status Urgency Interp retation None None None None None None DISCHARGE SUMMARY NOTE * Allergies: No known allergies * Medication Current: Medication Directions Start Date Form Frequency Route Duration Duration Units Status Strength Strength Units of Measure cephalexin Take 1 Capsule (oral) 3 times per day for 10 days capsu le 3 times per day oral 10 days active 500 mg * Plan of Care (advice, pending tests, pending diagnostic tests): Treatment Type Code Text Date Observatio n Data Instruction [id number] Patient Education 2021-03-03 Return to clinic if signs or symptoms persist or worsen. Instruction [id number] Patient Education 2021-03-03 Patien t should use warm compresses for 20 minutes 3-5 times per day. Avoid picking or manipulating the wound. Patient should seek ER treatment if fever, increase in pain, swelling, or other signs of increasing infection. * Visit Diagnosis: parohychia (L03.011) * Referrals: First Name Last Name NPI# Reason None recorded None recorded None recorded None recorde d HISTORY AND PHYSICAL NOTE * Reason for Visit: Patient Reports: finger blister [Free text: Pt. c/o of right ring finger has a bump on side. Statedthere was yellow pus coming out. x3 days]; Lesion [Onset: 3 Day(s); Melvina.: Reports Draining; Free text: lateral aspect of 4th finger right hand]. * Family History: * * Allergies: No known allergies * Problems: Names Dates Status parohychia [id number] active * Vitals: BMI Body Mass Index Percentile Date Systolic Diastolic Head Circumference Head Circumference Percentile Height Oxygen Concentration Pulse Pulse Oximeter Respiratory Rate Temperature Weight Tphykg-abk-ppfrqm Percentile 34.0 55 kg/m 2 Unknown 022 141 mmHg 84 mmHg Unknown Unknown 66 [in_i] Unknown 81 /min 96 % 18 /min 98 211 [lb_av] Unknown * Review of Systems: * *Systemic* Patient Denies* Fever * Headache * Allergy/Immun* Patient Denies* Allergy symptoms * Eyes* Patient Denies* Eye redness * GI* Patient Denies* Diarrhea * Tang/Lymph* Patient Denies* Swollen lymph nodes * Musc/Skel* Patient Denies* Back pain * Respiratory* Patient Denies* Cough * Skin/Breast* Patient Reports* Lesion (Onset: 3 Day(s); Melvina.: Reports Draining; Free text: lateral aspect of 4th finger right hand) * Patient Denies* Rash * Exam: * General : Normal* Normal : Well developed,No acute distress,Mood is normal * Skin, Hair, Nails : Abnormal* Normal : No rashes noted,Good skin turgor,no pallor present * Abnormal : paronychia lateral nail fold, 4th finger right hand * Head : Normal* Normal : Normocephalic,No evidence of trauma * Nose : Normal* Normal : Normal nasal mucosa,Nasal discharge absent * Chest/Lungs : Normal* Normal : No signs of respiratory distress,Chest is clear to auscultation bilaterally upon exam * Cardiac : Normal* Normal : Normal heart rate noted * Neurological : Normal* Normal : Patient is alert and oriented,Normal gait * Musculoskeletal : Normal* Normal : Normal Gait,Normal Posture * Psych : Normal* Normal : Patient is oriented to time, place and person,Mood appears to be Normal,Affect Normal * Plan of Care (advice, pending tests, pending diagnostic tests): Treatment Type Code Text Date Observatio n Data Instruction [id number] Patient Education 2021-03-03 Return to clinic if signs or symptoms persist or worsen. Instruction [id number] Patient Education 2021-03-03 Patien t should use warm compresses for 20 minutes 3-5 times per day. Avoid picking or manipulating the wound. Patient should seek ER treatment if fever, increase in pain, swelling, or other signs of increasing infection. * Lab Results: Overall Code Overall Text [Code] Result Type (Code) Result Text Result Value Relevant Reference Range Date Lab Name [facility] None recorded None recorded None recorded None recorded None recorded None recorded None recor ded None recor ded None recorde d None recor ded None record ed None recor ded * Radiology Results: Overall Code Overall Text [Code] Result Type (Code) Result Text Result Value Relevant Reference Range Date Lab Name [facility] None recorded None recorded None recorded None recorded None recorded None recorded None recor ded None recor ded None recorde d None recor ded None record ed None recor ded * Visit Diagnosis: parohychia (L03.011) * Referrals: First Name Last Name NPI# Reason None recorded None recorded None recorded None recorde d PLAN OF TREATMENT Treatment Type Code Text Date Instructio n Data Instruction [id number] Patient Education 2021-03-03 Return to clinic if signs or symptoms persist or worsen. Instruction [id number] Patient Education 2021-03-03 Patien t should use warm compresses for 20 minutes 3-5 times per day. Avoid picking or manipulating the wound. Patient should seek ER treatment if fever, increase in pain, swelling, or other signs of increasing infection. CHIEF COMPLAINT AND REASON FOR VISIT NARRATIVE Patient Reports: finger blister [Free text: Pt. c/o of right ring finger has a bump on side. Statedthere was yellow pus coming out. x3 days]; Lesion [Onset: 3 Day(s); Melvina.: Reports Draining; Free text: lateral aspect of 4th finger right hand].
--- OUTSIDE RECORDS SUMMARY | 2024-07-01 08:40 | XMS_ITS | Clinical Summary ---
Author Organization [employer] Address [address] [place] [address] [address] [place] [address] Care Team Providers Care Fatback Trimmer Name Role Phone Unavailable Primary Care Provider Unavailabl e Allergies No known active allergies Medications lisinopril 20 MG tablet TAKE 1 TABLET BY MOUTH EVERY MORNING 90 tablet 3 01/05/20 23 Active pravastatin (Pravachol) 40 MG tablet Take 1 tablet (40 mg) by mouth in the morning. 90 tablet 01/17/20 23 Active hydroCHLOROthiazi de (HYDRODiuril) 12.5 MG tabletIndications :Essential hypertension Take 1 tablet (12.5 mg) by mouth in the morning. 30 tablet 11 03/05/20 23 Active Levemir FlexTouch 100 UNIT/ML pen INJECT 50 UNITS SUBCUTANEOUSLY DAILY AT BEDTIME 04/03/20 22 Active Continuous Blood Gluc Sensor (Dexcom G6 Sensor) miscIndications:D iabetes mellitus with gastroparesis (CMS/HCC) USE FOR CONTINUOUS GLUCOSE MONITORING DIRECTED BY THE DOCTOR. 3 each 3 07/30/19 24 Active Ozempic, 0.25 or 0.5 MG/DOSE, 2 MG/3ML solution pen-injectorIndic ations:Type 2 diabetes mellitus with hyperglycemia, with long-term current use of insulin (CMS/HCC),Diabete s mellitus with gastroparesis (CMS/HCC) INJECT 0.5 MG SUBCUTANEOUSLY ONCE A WEEK 3 mL 08/27/19 24 Active Continuous Glucose Transmitter (Dexcom G6 transmitter) miscIndications:T ype 2 diabetes mellitus with hyperglycemia, with long-term current use of insulin (CMS/HCC) USE DIRECTED TO MONITOR BLOOD GLUCOSE CONTINUOUSLY FOR 90 DAYS 1 each 10/28/19 24 Active Active Problems Problem Noted Date Diagnosed Date Gastroparesis 02/06/2023 Diabetes mellitus with gastroparesis 11/27/2022 Assessment & Plan (03/05/2023 10:48 AM EDT): Continue to follow with GI Type 2 diabetes mellitus 09/11/2022 Assessment & Plan (03/05/2023 10:49 AM EDT): - Lab Results Component Value Date HGBA1C 8.3 (A) 03/05/2023 HGBA1C 6.7 (A) 11/27/2022 HGBA1C 7.2 (H) 02/12/2022 - Lab Results Component Value Date MICROALBUR 5.2 07/21/2021 CREATININE 1.23 01/14/2022 - Diabetic eye exam: referral today - Diabetic foot exam: pending - Continue lifestyle modifications -I increase ozempic to 0.5mg weekly Assessment & Plan (11/28/2022 12:19 PM EDT): - Lab Results Component Value Date HGBA1C 6.7 (A) 11/27/2022 HGBA1C 7.2 (H) 02/12/2022 HGBA1C 10.4 (H) 07/21/2021 HGBA1C 10.4 (H) 07/21/2021 - Lab Results Component Value Date MICROALBUR 5.2 07/21/2021 CREATININE 1.23 01/14/2022 - Diabetic eye exam: up to date - Diabetic foot exam: pending - Continue lifestyle modifications -I will go down on her levemir and I will start her on ozempic weekly, I already tried other medications including farxiga but patient did not tolerated well (caused recurrent UTIs and yeast infections) Obesity 09/11/2022 Neck pain 09/11/2022 Essential hypertension 09/11/2022 Assessment & Plan (03/05/2023 10:48 AM EDT): -I re-start her hydrochlorothiazide - Aerobic exercise to reduce BP. Initial goal of 30 min walk 3-5x/week. Increase as tolerated. - low-sodium diet (goal: <2g/day) and heart healthy diet such as DASH to reduce BP and prevent ASCVD. - Home BP monitoring 1-2 x day with goal of <140/90. - Seek immediate medical attention for chest pain, palpitations, SOB, syncope, or sudden changes in mental status. - Do not change or discontinue current prescriptions without first consulting health care provider Assessment & Plan (11/28/2022 12:15 PM EDT): - Aerobic exercise to reduce BP. Initial goal of 30 min walk 3-5x/week. Increase as tolerated. - low-sodium diet (goal: <2g/day) and heart healthy diet such as DASH to reduce BP and prevent ASCVD. - Home BP monitoring 1-2 x day with goal of <140/90. - Seek immediate medical attention for chest pain, palpitations, SOB, syncope, or sudden changes in mental status. - Do not change or discontinue current prescriptions without first consulting health care provider Decreased hearing 09/11/2022 COVID-19 09/11/2022 Immunizations Name Administration Dates Next Due Influenza injectable quadrivalent preservative f ree 03/05/2023 Pfizer Covid-19 Vaccine 12+ 03/05/2023 Zoster, Recombinant 05/14/2023,03/05/2023 Social History Tobacco Use Types Packs/Day Years Used Date Smoking Tobacco: Never Passive Smoke Exposure: Never Smokeless Tobacco: Never Tobacco Cessation:Counseling Given: Not Answered Depression Answer Date Recorded Patient Health Questionnaire-9 [...] Don't know 03/12/2022 10 :39 AM EDT Last Filed Vital Signs Vital Sign Reading Time Taken Comments Blood Pressure 153/93 03/05/2023 10:02 AM EDT Pulse 76 03/05/2023 10:02 AM EDT Temperature 37.4 ??C (99.4 ??F) 03/05/2023 1 0:02 AM EDT Respiratory Rate 16 03/05/2023 10:0 2 AM EDT Oxygen Saturation 99% 03/05/2023 10: 02 AM EDT Inhaled Oxygen Concentration - - Weight 91.5 kg (201 lb 12.8 oz) 023 10:02 AM EDT Height 167.6 cm (5' 6 ) 03/05/2023 10:0 2 AM EDT Body Mass Index 32.57 03/05/2023 10:02 AM EDT Plan of Treatment Health Maintenance Due Date Last Done Comments CT Colonography 1970 Colonoscopy 1970 Colorectal Cancer Screening 1970 FIT DNA/Cologuard 1970 FIT 1970 FOBT 1970 Sigmoidoscopy 1970 Diabetes: Foot Exam 01/03/1980 Eye Exam 01/03/1980 Alcohol/Substance Use Screening 1982 DTaP/Tdap/Td Vaccines (1 - Tdap) 1989 Hepatitis B Vaccines (1 of 3 - 19+ 3-dose series) 1989 Pneumococcal Vaccine: 50+ Years (1 of 2 - PCV) 1989 Pap Smear 1991 Cervical Cancer Screening 01/03/2000 HPV/Cotest 01/03/2000 Diabetes: Urine Protein Screening 07/21/2022 07/21/2021 Lipid Panel 02/12/2023 02/12/2022, 07/21/2021 Mammogram 09/12/2023 09/11/2022, 04/2 09/2022, 08/29/2021 Depression Screening 11/28/2023 11/27/2022, 11/28/19 SDOH Screening 11/28/2023 11/27/2022 Tobacco Screening 11/28/2023 11/27/2022 COVID-19 Vaccine ( season) 2024 03/05/2023 Influenza Vaccine (#1) 2024 03/05/2023 Diabetes: Hemoglobin A1C 12/21/2024 025, 03/18/2024, 03/05/2023, Additional history exists RSV Patients and Patients Aged 60 years or older (1 - 1-dose 75+ series) 2045 HIV Screening Completed 07/21/2021 Hepatitis C Screening Completed 07/21/2021 Zoster Vaccines Completed 05/14/2023, 03/05/2023 HIB Vaccines Aged Out No longer eligi ble based on patient's age to complete this topic HPV Vaccines Aged Out No longer eligi ble based on patient's age to complete this topic Hepatitis A Vaccines Aged Out No long er eligible based on patient's age to complete this topic IPV Vaccines Aged Out No longer eligi ble based on patient's age to complete this topic Meningococcal Vaccine Aged Out No sofia zelda eligible based on patient's age to complete this topic RSV under 20 months Aged Out No longe r eligible based on patient's age to complete this topic Rotavirus Vaccines Aged Out No longer eligible based on patient's age to complete this topic Procedures Procedure Name Priority Date/Time Associated Diagnosis Comments POCT GLYCATED HEMOGLOBIN, TOTAL Routine 03/05/2023 10:05 AM EDT Type 2 diabetes mellitus with hyperglycemia, with long-term current use of insulin ([facility]) HM MAMMOGRAPHY Routine 09/11/2022 LIPID PANEL, STANDARD Routine 02/12/2022 10:36 AM EDT ZZZ HISTORICAL HEPATITIS C AB W/REFL TO HCV RNA, QN, PCR Routine 07/21/2021 3:28 PM EST HIV 1/2 ANTIGEN/ANTIBODY, FOURTH GENERATION W/RFL Routine 07/21/2021 3:28 PM EST ALBUMIN, RANDOM URINE W/CREATININE Routine 07/21/2021 3:28 PM EST from Last 3 Months or Most Recently Relevant to Health Maintenance Results * Mammography (09/11/2022) Mammogram negative [facility] Anatomical Region Laterality Modality Other April Burks MD HEALTH MAINTENANCE Fi nal Result * (ABNORMAL) LIPID PANEL, STANDARD (02/12/2022 10:36 AM EDT) Chol/HDLC Ratio 3.4 <5.0 (calc) CONVERTED [facility]GACY LABS Cholesterol, Total 156 <200 mg/dL [facility] HDL Cholesterol 46(L) > OR = 50 mg/dL [facility] LDL Cholesterol 92 mg/dL (calc) [facility] Comment: Reference range: <100 ?? Desirable range <100 mg/dL for primary prevention; ?? <70 mg/dL for patients with CHD or diabetic patients ?? with > or = 2 CHD risk factors. ?? LDL-C is now calculated using the Earl-Fernandez ?? calculation, which is a validated novel method providing ?? better accuracy than the Friedewald equation in the ?? estimation of LDL-C. ?? Earl SYLVESTER et al. VINAY. 2013;310(19): 5774-1375 ?? (http://education.Luqit.Wurldtech/faq/SFF154) Non-HDL Cholesterol 110 <130 mg/dL (calc) [facility]VERT[facility]GAC[facility] Comment: For patients with diabetes plus 1 major ASCVD risk ?? factor, treating to a non-HDL-C goal of <100 mg/dL ?? (LDL-C of <70 mg/dL) is considered a therapeutic ?? option. Triglycerides 86 <150 mg/dL CONVE RTED LEGACY LABS 02/12/2022 10:3 6 AM EDT April Burks MD LAB BLOOD ORDERABLES Final Result Performing Organization Address [facility]/ZIP Co de Phone Number CONVERTED LEGACY LABS * HEPATITIS C AB W/REFL TO HCV RNA, QN, PCR (07/21/2021 3:28 PM EST) HEPATITIS C ANTIBODY NON-REACT STACEY NON-REACT [facility] INDEX 0.03 <1.00 [facility] Comment: ?? HCV antibody was non-reactive. There is no laboratory ?? evidence of HCV infection. ?? In most cases, no further action is required. However, if recent HCV exposure is suspected, a test for HCV RNA (test code 96013) is suggested. ?? For additional information please refer to http://[employer]/faq/WVB24f8 (This link is being provided for informational/ educational purposes only.) ?? HEPATITIS C ANTIBODY NON-REACT STACEY NON-REACT ST[facility]Y [facility] INDEX 0.03 <1.00 [facility] Comment: ?? HCV antibody was non-reactive. There is no laboratory ?? evidence of HCV infection. ?? In most cases, no further action is required. However, if recent HCV exposure is suspected, a test for HCV RNA (test code 50598) is suggested. ?? For additional information please refer to http://[employer]/faq/EFO57h7 (This link is being provided for informational/ educational purposes only.) ?? 07/21/2021 3:28 PM EST April Burks MD HISTORICAL/NON ORDERA BLE LABS Final Result Performing Organization Address City/[facility]/ZIP Co de Phone Number [facility] [address] * (ABNORMAL) ALBUMIN, RANDOM URINE W/CREATININE (07/21/2021 3:28 PM EST) Pathologist [facility] Microalbumin Urine 5.2 See Note: mg/dL [facility] Comment: Reference Range: ?? Reference Range Not established Microalb/Creat Ratio 102(H) <30 mcg/mg creat [facility] Comment: ?? The ADA defines abnormalities in albumin excretion as follows: ?? Albuminuria Category ?Result (mcg/mg creatinine) ?? Normal to Mildly increased ?? <30 Moderately increased ? 30-299 ?? Severely increased ? > OR = 300 ?? The ADA recommends that at least two of three specimens collected within a 3-6 month period be abnormal before considering a patient to be within a diagnostic category. Creatinine, Urine 51 20 - 275 mg/dL [facility] 07/21/2021 3:28 PM EST us April Burks MD LAB URINE ORDERABLES Final Result [facility] [address] * HIV 1/2 ANTIGEN/ANTIBODY,FOURTH GENERATION W/RFL (07/21/2021 3:28 PM EST) HIV-1/2 ANTIGEN AND ANTIBODIES, 4TH GENERATION W/ REFLEX NON-REACT STACEY NON-REACT STACEY [facility] Comment: HIV-1 antigen and HIV-1/HIV-2 antibodies were not detected. There is no laboratory evidence of HIV infection. ?? PLEASE NOTE: This information has been disclosed to you from records whose confidentiality may be protected by state law. ??If your state requires such protection, then the state law prohibits you from making any further disclosure of the information without the specific written consent of the person to whom it pertains, or as otherwise permitted by law. A general authorization for the release of medical or other information is NOT sufficient for this purpose. ? For additional information please refer to http://education.[employer]Rx.Wurldtech/faq/WHQ873 (This link is being provided for informational/ educational purposes only.) ? The performance of this assay has not been clinically validated in patients less than 2 years old. ?? HIV-1/2 ANTIGEN AND ANTIBODIES, 4TH GENERATION W/ REFLEX NON-REACT STACEY NON-REACT STACEY [facility] Comment: HIV-1 antigen and HIV-1/HIV-2 antibodies were not detected. There is no laboratory evidence of HIV infection. ?? PLEASE NOTE: This information has been disclosed to you from records whose confidentiality may be protected by state law. ??If your state requires such protection, then the state law prohibits you from making any further disclosure of the information without the specific written consent of the person to whom it pertains, or as otherwise permitted by law. A general authorization for the release of medical or other information is NOT sufficient for this purpose. ? For additional information please refer to http://[employer]/faq/WBL115 (This link is being provided for informational/ educational purposes only.) ? The performance of this assay has not been clinically validated in patients less than 2 years old. ?? 07/21/2021 3:28 PM EST April Burks MD LAB BLOOD ORDERABLES Final Result Performing Organization Address City/State/[facility] Co va Phone Number [facility] [address] from Last 3 Months or Most Recently Relevant to Health Maintenance Insurance [place], [place] [facility] H[facility] * Guarantor: Gerry Ramos Account Type Relation to Patient Date of Phone Billing Address Personal/Family Self [place], [place]
[2024-07-01 08:51] VITALS: BP 102/68; PULSE 82; RESP 14; O2SAT 97; BMI 30.4
== END 2024-07-01 09:15 | disposition home or self-care (01) ==
PROVIDERS: PCP Physician Assistant; Visit Provider Physician Assistant
DX: E11.8 Type 2 diabetes mellitus with unspecified complications (principal); Z79.4 Long term (current) use of insulin; I10 Essential (primary) hypertension; Z90.3 Acquired absence of stomach [part of]; E78.5 Hyperlipidemia, unspecified

== ENCOUNTER → 2024-11-24 14:15 | Outpatient (BNV) | payer OTHER, SELFPAY | PROVIDERS: PCP Physician Assistant; Visit Provider Internal Medicine | DX: Z12.31 Encounter for screening mammogram for malignant neoplasm of breast (principal) | CPT/HCPCS: 77063; 77067 ==

== ENCOUNTER 2024-11-24 14:25 | Outpatient (REF) | payer OTHER, SELFPAY ==
--- OUTSIDE RECORDS SUMMARY | 2024-11-24 15:44 | XMS_ITS | Encounter Summary ---
Author Organization [employer] Address [address] [place] [address] [address] [place] [address] Care Team Providers Care Gyroscopic Instrument Mechanic Name Role Phone Unavailable Primary Care Provider Unavailabl e Reason for Visit * Reason Comments Med Refill Encounter Details Date Type Department Care Team ([facility] st Contact Info) Description 01/31/2024 Refill [facility] [address] [place] [address] April Delong MD [address] [place] [address] Social History Tobacco Use Types Packs/Day Years [...]
== END 2024-11-24 14:26 | disposition home or self-care (01) ==
LOC: HO.MAMMO 14:25
PROVIDERS: PCP Physician Assistant; Visit Provider Family Medicine
DX: Z12.31 Encounter for screening mammogram for malignant neoplasm of breast (principal)
CPT/HCPCS: 77063; 77067